=== PATIENT | male | born 1990 | race Caucasian/White ===

== ENCOUNTER 2019-03-26 13:06 | Inpatient (IN) | payer MEDICAID ==
[~2019-03-26] VITALS: Ht 162.6 cm; Wt 83.9 kg
[2019-03-26 13:42] VITALS: BP 139/78
--- NOTE | 2019-03-26 13:54 | NUR ---
TO BED 12 VIA W/C WITH CAREGIVER
--- NOTE | 2019-03-26 14:07 | NUR ---
28 Y/O M BIB CAREGIVER. PT HAS BEEN VOMITING WITH A COUGH X 3 DAYS. PT FEEDINGS THROUGH NG TUBE. CAREGIVER STATES PT VOMITS AFTER EATING. NO DIARRHEA. PT IN WHEELCHAIR AT BEDSIDE WITH CAREGIVER. PT VSS, OXGEN 98% ROOM AIR, LUNG SOUNDS CLEAR THROUGHOUT.
[2019-03-26 14:45] LABS: BASOPHILS % (AUTO) 0.4 % (0.0-2.0); EOSINOPHILS % (AUTO) 0.4 % (0.0-4.0); HEMATOCRIT 38.6 % (36-52); LYMPHOCYTES # (AUTO) 1.4 K/uL (2.0-11.5); LYMPHOCYTES % (AUTO) 13.1 % (20.5-51.1); MEAN CORPUSCULAR HEMOGLOBIN 34 pg (27-31); MEAN CORPUSCULAR HGB CONC 34 g/dL (33-37); MEAN CORPUSCULAR VOLUME 101.8 fL (80-94); MONOCYTES % (AUTO) 8.8 % (1.7-9.3); NEUTROPHILS # (AUTO) 8.4 K/uL (1.8-7.7); NEUTROPHILS % (AUTO) 77.3 % (42.2-75.2); PLATELET COUNT (AUTO) 410 K/uL (140-450); RED BLOOD CELL COUNT(AUTO) 3.79 MIL/uL (4.20-6.10); RED CELL DISTRIBUTION WIDTH 13.9 % (11.6-13.7); WHITE BLOOD COUNT (AUTO) 10.9 K/uL (4.8-10.8)
[2019-03-26 15:09] LABS: ANION GAP 15.9 (8-16); CARBON DIOXIDE 28.6 mmol/L (21-32); CREATININE 0.5 mg/dL (0.7-1.3); POTASSIUM 3.5 mmol/L (3.5-5.1)
[2019-03-26 15:18] LABS: ALBUMIN 3.2 g/dL (3.4-5.0); TOTAL BILIRUBIN 0.4 mg/dL (0.0-1.0)
--- NOTE | 2019-03-26 15:52 | NUR ---
Patient taken to XRAY via personal wheelchair by tech.
--- NOTE | 2019-03-26 16:04 | NUR ---
PT RETURNED FROM CT.
--- NOTE | 2019-03-26 16:37 | NUR ---
Patient returned from CT scan.
--- NOTE | 2019-03-26 17:12 | NUR ---
ASKED SERVANDO VELASCO TO RECHECK PT'S BODY WEIGHT BEFORE ADMISSION.
[2019-03-26] MEDS ORDERED: ACETAMINOPHEN 325 MG TAB PO PRN (17:25)
[2019-03-26] MEDS ORDERED: DOCUSATE SODIUM 100 MG GELCAP PO PRN (17:25)
[2019-03-26] MEDS ORDERED: ALBUTEROL SULFATE/IPRATROPIU 3 ML SOL IH PRN (17:35)
[2019-03-26] MEDS ORDERED: LORazepam 2 MG/ML VIAL IVP PRN (17:35)
--- NOTE | 2019-03-26 18:00 | NUR ---
PT REPOSITIONED FOR COMFORT. PT VOMITING, CLEANED PATIENT. VSS. ELECTRONIC DATA INTERCHANGE SPECIALIST AT BEDSIDE.
[2019-03-26] MEDS ORDERED: DIAZ20GE RC (18:20)
[2019-03-26] MEDS ORDERED: [UNRECOGNIZED DRUG - CODE] GT (18:20)
[2019-03-26] MEDS ORDERED: LACO10SO GT ×2 (18:20→18:36)
[2019-03-26] MEDS ORDERED: RISP1TAB27 GT (18:20)
[2019-03-26] MEDS ORDERED: METO5SOL19 GT (18:20)
[2019-03-26] MEDS ORDERED: LACT10SO93 GT (18:20)
[2019-03-26] MEDS ORDERED: PHEN20EL30 GT ×2 (18:20)
[2019-03-26] MEDS ORDERED: KEP500L GT (18:20)
[2019-03-26] MEDS ORDERED: BENZ-203 GT (18:20)
[2019-03-26] MEDS ORDERED: FERR75LI22 GT (18:20)
[2019-03-26] MEDS ORDERED: RISP0.2515 GT (18:20)
--- NOTE | 2019-03-26 18:30 | NUR ---
RECEIVED BEDSIDE REPORT FROM ED NURSE. CAREGIVER AT BEDSIDE. PT RESTING IN BED UPON ARRIVAL. FLACC 0. RESPIRATIONS EVEN AND UNLABORED WITH NO SOB OR RESPIRATORY DISTRESS. SKIN WARM AND DRY TO TOUCH. IV SITE IN LEFT THUMB 24G IS CLEAN, DRY, AND INTACT. VITAL SIGNS ARE FOLLOWS: 100/62 BP, 90% SPO2 ON RA, 81HR, 17RR, AND 97.7 TEMP. SAFETY MEASURES IN PLACE. WILL ENDORSE TO NIGHTSHIFT NURSE
--- NOTE | 2019-03-26 18:30 | NUR ---
Patient will be admitted to care of DR URBINA. Admited to [facility]. Will go to [id number]. Belongings list completed. Report to ROD KEENAN.
--- NOTE | 2019-03-26 19:00 | NUR ---
RECEIVED BEDSIDE REPORT FROM DAY SHIFT NURSE. PT RESTING IN BED. FLACC 0. RESPIRATIONS EVEN AND UNLABORED WITH NO SOB OR RESPIRATORY DISTRESS. SKIN WARM AND DRY TO TOUCH. IV SITE IN LEFT THUMB 24G IS CLEAN, DRY, AND INTACT. VITAL. GTUBE NOTED. SAFETY MEASURES IN PLACE. BED IN LOW POSITION, CALL LIGHT WITHIN REACH.
[2019-03-26 19:13] LABS: MAGNESIUM 2.3 mg/dL (1.8-2.4); PHOSPHORUS 3.4 mg/dL (2.5-4.9); THYROID STIMULATING HORMONE 1.86 uIU/mL (0.34-3.74)
[2019-03-26 20:00] VITALS: BP_SYST 100; BP_SYST 110; BP_DIAS 60; BP_DIAS 68
[2019-03-26] MEDS ORDERED: hePARIN / DEXT 5% PREMIX 250 ML IV SCH (20:05)
[2019-03-26] MEDS ORDERED: NITROGLYCERIN 0.4 MG TAB SL PRN (20:05)
[2019-03-26] MEDS: FERROUS SULFATE 300 MG/5 ML UDC GT SCH ×2 (21:00→22:05)
[2019-03-26] MEDS: ATORVASTATIN 20 MG TAB PO SCH ×2 (21:00→22:05)
[2019-03-26] MEDS: risperiDONE 1 MG TAB GT SCH ×2 (21:00→22:06)
[2019-03-26] MEDS: BENZTROPINE 1 MG TAB GT SCH ×2 (21:00→22:06)
[2019-03-26] MEDS ORDERED: PANTOPRAZOLE 40 MG INJ VIAL IVP SCH (21:00)
[2019-03-26] MEDS: CHLORHEXADINE GLUC 2% CLOTH TP SCH (21:00)
[2019-03-26] MEDS ORDERED: NON-FORMULARY ITEM (Lacosamide (Vimpat) 200 MG) GT SCH (21:00)
[2019-03-26] MEDS: METOPROLOL 25 MG TAB PO SCH ×2 (21:00→22:18)
[2019-03-26] MEDS ORDERED: levETIRAcetam 100 MG/ML ORASYR GT SCH (21:00)
[2019-03-26] MEDS: Lacosamide 100 mg tablet GT SCH (21:00)
--- NOTE | 2019-03-26 21:20 | NUR ---
ENDORSED PT TO JASMYNE FOR CONTINUOUS CARE.
--- NOTE | 2019-03-26 21:21 | NUR ---
RECEIVED FROM ANOTHER RN FOR CONTINUITY OF CARE. PT. HX. CEREBRAL PALSY. NEEDS WILL BE ANTICIPATED AND WILL BE MET. TOTAL CARE. DX. COFFEE GROUND EMESIS AND ABDOMINAL PAIN. GT IN PLACE. NO NOTED VOMITING AT THIS TIME. PT. PRESENTLY SLEEPING POST BENCH MOLDER APPRENTICE CLEANING HIM UP FOR NIGHT PERSONAL HYGIENE. TELEMETRY MONITORING 84 NSR AT THIS TIME. AFEBRILE. SKIN INTACT.
[2019-03-26] MEDS: ALBUTEROL SULFATE/IPRATROPIU 3 ML SOL IH SCH (21:53)
[2019-03-26] MEDS ORDERED: ASPIRIN 325 MG TAB PO SCH (22:00)
[2019-03-26] MEDS: DEXT 5% /NACL 0.9% 1,000 ML IV SCH (22:13)
[2019-03-26] MEDS ORDERED: CRUSHER, PILL MC ONE (22:20)
--- NOTE | 2019-03-26 22:38 | NUR ---
PT. VOMITING AT THIS TIME AND RESIDENT MD IN HERE TO OBSERVE PT. ALL GT MEDICATIONS NOT TO BE GIVEN. WILL HOLD ALL MEDICATIONS FOR GT . ONLY IVP IS TO BE ADMINISTERED ORDERED BY RESIDENT MD MARTIN. PT. PLACED WITH HOB UP FOR ASPIRATION PRECAUTION. ATTENDED TO BY CNAS AND NURSES.
[2019-03-26] MEDS ORDERED: levETIRAcetam 500 MG in NACL 0.9% 100 ML IV SCH (22:40)
[2019-03-26] MEDS: METOCLOPRAMIDE 10 MG/2 ML INJ VIAL IVP SCH (23:11)
[2019-03-26] MEDS: ONDANSETRON 4 MG/2 ML VIAL IM/IVP PRN (23:12)
[2019-03-26] MEDS ORDERED: PHENobarbital 65 MG/ML VIAL IV SCH (23:30)
[2019-03-26] MEDS ORDERED: BISACODYL 10 MG SUPP RC SCH (23:30)
--- NOTE | 2019-03-27 | NUR ---
ALL MEDICATIONS CHANGED TO IVP NOW BY RESIDENT MD. WILL MONITOR FOR FURTHER VOMITING. SPECIMEN FOR FLU AND MRSA NARES SENT TO LAB FOR TESTING. PLACED ON AT 2 LPM/NC RT ANXIOUS FROM VOMITING TOO MUCH AND 02 SAT ONLY 92 % ROOM AIR. NEEDS WILL BE ANTICIPATED AND WILL BE MET.
[2019-03-27 00:46] VITALS: BP 118/82
[2019-03-27 01:23] LABS: BASOPHILS # (AUTO) 0.1 K/uL (0.00-0.22); BASOPHILS % (AUTO) 0.5 % (0.0-2.0); EOSINOPHILS % (AUTO) 0.1 % (0.0-4.0); HEMATOCRIT 37.4 % (36-52); HEMOGLOBIN 12.5 g/dL (12.0-18.0); LYMPHOCYTES # (AUTO) 1.1 K/uL (2.0-11.5); LYMPHOCYTES % (AUTO) 9.2 % (20.5-51.1); MEAN CORPUSCULAR HEMOGLOBIN 34 pg (27-31); MEAN CORPUSCULAR HGB CONC 33 g/dL (33-37); MEAN CORPUSCULAR VOLUME 101.6 fL (80-94); MONOCYTES % (AUTO) 8.4 % (1.7-9.3); NEUTROPHILS # (AUTO) 9.8 K/uL (1.8-7.7); NEUTROPHILS % (AUTO) 81.8 % (42.2-75.2); PLATELET COUNT (AUTO) 399 K/uL (140-450); RED BLOOD CELL COUNT(AUTO) 3.69 MIL/uL (4.20-6.10); RED CELL DISTRIBUTION WIDTH 14.1 % (11.6-13.7); WHITE BLOOD COUNT (AUTO) 11.9 K/uL (4.8-10.8)
[2019-03-27] MEDS: DEXT 5% /NACL 0.9% 1,000 ML IV SCH ×3 (01:44→17:36)
--- NOTE | 2019-03-27 03:37 | NUR ---
PT. SLEEPING AT THIS TIME. NO RESTLESSNESS. SUCTIONED PRN IF VOMITING. HOB UP FOR ASPIRATION PRECAUTIONS AND WITH PADDED SIDERAILS FOR SEIZURE PRECAUTIONS.
--- NOTE | 2019-03-27 03:44 | NUR ---
LATEST TROPONIN TRENDING DOWN TO NORMAL. RESIDENT MD MARTIN AWARE. ORDER TO HOLD ASPIRIN TABLET.
[2019-03-27 04:00] VITALS: BP 105/70
--- NOTE | 2019-03-27 04:00 | NUR ---
PT. ATTENDED TO BY CNAS. PILLOW SUPPORT TO PRESSURE AREAS. TURNED Q 2H. NO VOMITING POST ANTI NAUSEA /VOMITING MEDICATIONS ADMINISTERED.
[2019-03-27] MEDS: METOCLOPRAMIDE 10 MG/2 ML INJ VIAL IVP SCH ×3 (05:01→17:35)
--- NOTE | 2019-03-27 06:22 | NUR ---
AM PERSONAL HYGIENE RENDERED BY CNAS. PT. STOPPED VOMITING. NEEDS ANTICIPATED AND MET. TOTAL CARE. IVF SITE INTACT AND NO INFILTRATION. TELEMETRY MONITORING.
[2019-03-27] MEDS ORDERED: LANSOPRAZOLE 30 MG CAPDR GT SCH (06:30)
--- NOTE | 2019-03-27 07:25 | NUR ---
RECEIVED BEDSIDE SHIFT REPORT FROM INSET CUTTER NURSE FOR CONTINUATION OF CARE. PATIENT IS NPO DUE TO PERSISTENT VOMITING. D5NS RUNNING AT 120 ML/HR. 24 G IV IN LEFT HAND. 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 HX OF SHOE SALESMAN SHUNT. PATIENT IS UNRESPONSIVE TO VERBAL COMMANDS. BILATERAL WRIST CONTRACTURES. 2 L O2 NC FOR COMFORT AND LOW SPO2 SATURATION THROUGHOUT THE NIGHT AT 90-92%. CALL LIGHT ON AND WITHIN REACH. BED IN LOW POSITION, SEIZURE PRECAUTION IN PLACE. WILL CONTINUE TO MONITOR.
[2019-03-27 08:00] VITALS: BP 92/67
[2019-03-27] MEDS: ALBUTEROL SULFATE/IPRATROPIU 3 ML SOL IH SCH ×3 (08:05→20:29)
--- NOTE | 2019-03-27 08:34 | NUR ---
PATIENT HAS BEEN SCREENED AND CATEGORIZED HIGH NUTRITION RISK. PATIENT WILL BE SEEN WITHIN 1-2 DAYS OF ADMISSION. 03/26/2019-03/28/[address]
[2019-03-27 08:51] LABS: ANION GAP 12.1 (8-16); CARBON DIOXIDE 32.8 mmol/L (21-32); CREATININE 0.5 mg/dL (0.7-1.3)
[2019-03-27] MEDS ORDERED: LISINOPRIL 5 MG TAB PO SCH (09:00)
[2019-03-27] MEDS ORDERED: levETIRAcetam 1,500 MG in NACL 0.9% 100 ML IV SCH ×3 (09:00)
[2019-03-27] MEDS ORDERED: PHENobarbital 130 MG/ML VIAL IM SCH (09:00)
[2019-03-27] MEDS ORDERED: METOCLOPRAMIDE 10 MG/10 ML SYRP UDC GT SCH (09:00)
[2019-03-27] MEDS ORDERED: PHENobarbital 130 MG/ML VIAL IV SCH ×2 (09:00→21:00)
[2019-03-27] MEDS ORDERED: ASPIRIN 81 MG TAB.CHEW PO SCH (09:00)
[2019-03-27 09:14] LABS: POTASSIUM 2.9 mmol/L (3.5-5.1)
[2019-03-27 09:30] LABS: MAGNESIUM 2.2 mg/dL (1.8-2.4); PHOSPHORUS 4.1 mg/dL (2.5-4.9)
[2019-03-27] MEDS ORDERED: POTASSIUM CHLORIDE 20% 40 MEQ/15 ML UDC GT SCH (09:30)
--- NOTE | 2019-03-27 09:30 | NUR ---
RECEIVED CRITICAL LAB VALUE OF 2.9 POTASSIUM, REPORTED TO . [place] NUNEZ AND POTASSIUM SUPPLEMENT PER MD'S ORDER. PATIENT WAS ASSESSED BY DR. BLACKBURN FOR GASTRIC ABNORMALITIES, ORDERS ENTERED PER MD FOR LAXATIVES. NUTRITION CONSULT PLACED FOR FEEDING. PATIENT IS IN BED, POOR EYE CONTACT, UNRESPONSIVE TO VERBAL COMMANDS, AAOX1, SEVERE INTELLECTUAL DISABILITY. WILL CONTINUE TO MONITOR.
[2019-03-27 09:31] LABS: CHOL/HDL RATIO 4.5 (1-4.5)
[2019-03-27] MEDS ORDERED: MAGNESIUM HYDROXIDE 2400 MG/30 ML UDC GT PRN (09:55)
[2019-03-27] MEDS ORDERED: MAGNESIUM CITRATE 300 ML BTL GT SCH (09:55)
[2019-03-27] MEDS ORDERED: POTASSIUM CHLORIDE 40 MEQ, LIDOCAINE MPF 1% 25 MG in NACL 0.9% 250 ML IV ONE (10:00)
[2019-03-27] MEDS: BENZTROPINE 1 MG TAB GT SCH ×2 (10:29→21:01)
[2019-03-27] MEDS: risperiDONE 1 MG TAB GT SCH ×3 (10:29→21:03)
[2019-03-27] MEDS: FERROUS SULFATE 300 MG/5 ML UDC GT SCH ×2 (10:29→21:02)
[2019-03-27] MEDS: LACTULOSE 20 GM/30 ML UDC GT SCH (10:30)
[2019-03-27] MEDS: Lacosamide 100 mg tablet GT SCH ×2 (10:30→21:02)
[2019-03-27] MEDS: CHLORHEXADINE GLUC 2% CLOTH TP SCH ×2 (11:57→21:03)
[2019-03-27 12:00] VITALS: BP 119/63
--- NOTE | 2019-03-27 12:00 | NUR ---
PATIENT WAS CLEANED DUE TO SOILED LINEN, PATIENT HAD A LARGE AMOUNT OF DARK GREEN, MUCOID POOP THAT WAS VERY STEADFAST TO THE PATIENTS SKIN AND LINEN. PATIENT IS OBSERVED TO BE AGITATED AND WAS SEEN HITTING HIMSELF WITH A CLOSED RIGHT FIST, SOFT MITTENS ADMINISTERED. K RIDER ADMINISTERED, MEDICATIONS ADMINISTERED PER PEG TUBE. RECEIVED A PHONE CALL FROM MOTHER REGARDING A STATUS UPDATE. PATIENT IS RESTING IN BED, 1 EPISODE OF COFFEE GROUND EMESIS NOTED. BED IN LOW POSITION, CALL LIGHT ON AND WITHIN REACH. WILL CONTINUE TO MONITOR.
[2019-03-27] MEDS: levETIRAcetam 1,500 MG in NACL 0.9% 100 ML IV SCH (14:21)
--- NOTE | 2019-03-27 14:21 | NUR ---
PATIENTS VITAL SIGNS ARE WNL, PATIENT HAS NOT HAD A BOWEL MOVEMENT SINCE ADMINISTRATION OF MAG CITRATE. PATIENT HAS 1 BAG OF K RIDER RUNNING AT 68 ML/HR. TOLERATING WELL, NO SIGNS OF DISTRESS NOTED. BED IS IN LOW POSITION, CALL LIGHT ON AND WITHIN REACH. WILL CONTINUE TO MONITOR.
[2019-03-27 16:00] VITALS: BP 124/68
--- NOTE | 2019-03-27 16:57 | NUR ---
03/27/2019 RD INITIAL ASSESSMENT COMPLETED PLEASE REFER TO NUTRITION ASSESSMENT UNDER CARE ACTIVITY FOR ESTIMATED NUTRITIONAL NEEDS. 1. CONTINUE NPO NECESSARY 2. RECOMMEND JEVITY 1.2 @ 60 ML/HR -THIS WILL PROVIDE A VOLUME OF 1440 ML, 1728 KCAL, 79 GM PROTEIN. IT WILL MEET 100% OF PT ESTIMATED ENERGY AND PROTEIN NEEDS. 3. RECOMMEND FREE WATER FLUSH OF [address] TO FOLLOW-UP 2-3 DAYS, HIGH RISK [facility]
--- NOTE | 2019-03-27 17:00 | NUR ---
TUBE FEEDING NOT STARTED DUE TO COFFEE GROUND EMESIS X3, NO URINE OUTPUT. PER MD ORDERS, ADMINISTERED PROTONIX, REGLAN, AND ZOFRAN IV. NO EMESIS AT THIS TIME, D5 NS RUNNING AT 120 ML/HR. SPOKE WITH MOTHER REGARDING TREATMENT. SHE STATES SHE WILL BE HERE TOMORROW. PATIENT IS SLEEPING AT THIS TIME, CHEST RISE AND FALL OBSERVED, CALL LIGHT ON AND WITHIN REACH, WILL CONTINUE TO MONITOR.
[2019-03-27] MEDS ORDERED: SODIUM PHOSPHATE 118 ML ENEM RC SCH (17:10)
[2019-03-27] MEDS: PANTOPRAZOLE 40 MG INJ VIAL IVP SCH ×2 (17:35→21:01)
[2019-03-27] MEDS: ONDANSETRON 4 MG/2 ML VIAL IM/IVP PRN (17:36)
--- NOTE | 2019-03-27 19:10 | NUR ---
REPORT GIVEN TO NIGHTSHIFT NURSE FOR CONTINUATION OF CARE.
--- NOTE | 2019-03-27 19:15 | NUR ---
RECEIVED PT FROM ALISSA RN PT WITH HX OF SEVERE INTELECTUAL DISABILITY CONTRACTED, IV ON LEFT HAND GAUGE # 24 INFUSING WELL, G TUBE FEEDING ZERO RESIDUAL PT REPOSITIONED INCONTINENT INITIAL ASSESSMENT DONE
[2019-03-27 19:36] LABS: ANION GAP 12.5 (8-16); CARBON DIOXIDE 28.4 mmol/L (21-32); CREATININE 0.5 mg/dL (0.7-1.3); POTASSIUM 3.9 mmol/L (3.5-5.1)
[2019-03-27 20:00] VITALS: BP 92/49
--- NOTE | 2019-03-27 20:36 | NUR ---
RECEIVED PT ON 2L NC WITH SP02 OF 95% AND CLEAR BREATH SOUNDS ON UPPER LOBES. NO RESPIRATORY DISTRESS NOTED AT THIS TIME; HR 82, RR 18. HHN TX GIVEN ORDERED WITH NO ADVERSE REACTION. WILL CONTINUE TO MONITOR PT
--- NOTE | 2019-03-27 22:30 | NUR ---
PT HAVE A MODERATED COFFEE BROWN VOMITING NOT FEVER, SPONGE BATH GIVEN LINEN CHANGED PT ON TELEMETRY SR
[2019-03-28] VITALS: BP 100/50
[2019-03-28] MEDS: METOCLOPRAMIDE 10 MG/2 ML INJ VIAL IVP SCH ×4 (00:29→17:00)
[2019-03-28] MEDS: levETIRAcetam 1,500 MG in NACL 0.9% 100 ML IV SCH ×2 (00:58→12:41)
--- NOTE | 2019-03-28 01:00 | NUR ---
PT SLEEPING NOT VOMITING ACTIVE AT THIS TIME ON TELMETRY SR IV ON LEFT HAND INFUSING WELL
[2019-03-28] MEDS: DEXT 5% /NACL 0.9% 1,000 ML IV SCH ×2 (01:35→12:41)
[2019-03-28 04:00] VITALS: BP 108/73
--- NOTE | 2019-03-28 04:00 | NUR ---
SPONGE BATH GIVEN EDUAR MENDEZ ON TELE SR
--- NOTE | 2019-03-28 07:00 | NUR ---
REPORT GIVEN TO DAY SHIFT NURSE FOR CONTINUE OF CARE
--- NOTE | 2019-03-28 07:20 | NUR ---
BEDSIDE SHIFT REPORT RECEIVED FROM PIANO MOVER NURSE FOR CONTINUATION OF CARE. PATIENT IS RESTING IN BED, EYES ARE CLOSED, OBSERVED CHEST RISE AND FALL. PATIENT HAS A RIGHT HAND MITTEN SOFT RESTRAINT DUE TO HX OF HITTING HIMSELF. PATIENTS IV IS INTACT AND FLUSHING 120 ML/HR D5NS. BED IS IN LOW POSITION, CALL LIGHT ON AND WITHIN REACH. WILL CONTINUE TO MONITOR.
[2019-03-28 07:21] LABS: BASOPHILS % (AUTO) 0.3 % (0.0-2.0); EOSINOPHILS % (AUTO) 0.1 % (0.0-4.0); HEMATOCRIT 30.6 % (36-52); HEMOGLOBIN 10.3 g/dL (12.0-18.0); LYMPHOCYTES # (AUTO) 1.4 K/uL (2.0-11.5); MEAN CORPUSCULAR HEMOGLOBIN 35 pg (27-31); MEAN CORPUSCULAR HGB CONC 34 g/dL (33-37); MEAN CORPUSCULAR VOLUME 104.6 fL (80-94); MONOCYTES # (AUTO) 1.3 K/uL (0.8-1.0); MONOCYTES % (AUTO) 13.1 % (1.7-9.3); NEUTROPHILS # (AUTO) 7.3 K/uL (1.8-7.7); NEUTROPHILS % (AUTO) 72.5 % (42.2-75.2); PLATELET COUNT (AUTO) 383 K/uL (140-450); RED BLOOD CELL COUNT(AUTO) 2.92 MIL/uL (4.20-6.10); RED CELL DISTRIBUTION WIDTH 14.5 % (11.6-13.7)
[2019-03-28 07:33] LABS: MAGNESIUM 2.8 mg/dL (1.8-2.4); PHOSPHORUS 2.6 mg/dL (2.5-4.9)
[2019-03-28 07:36] LABS: ANION GAP 10.4 (8-16); CARBON DIOXIDE 28.9 mmol/L (21-32); CREATININE 0.5 mg/dL (0.7-1.3); POTASSIUM 3.3 mmol/L (3.5-5.1)
--- NOTE | 2019-03-28 07:51 | NUR ---
130 CC FREE WATER FLUSH TOLERATED WITHOUT DISTRESS THROUGH PEG TUBE PER MD'S ORDERS.
[2019-03-28 08:00] VITALS: BP 99/58
[2019-03-28] MEDS: LACTULOSE 20 GM/30 ML UDC GT SCH (08:03)
[2019-03-28] MEDS: FERROUS SULFATE 300 MG/5 ML UDC GT SCH ×2 (08:03→21:50)
[2019-03-28] MEDS: BENZTROPINE 1 MG TAB GT SCH ×2 (08:04→21:49)
[2019-03-28] MEDS: risperiDONE 1 MG TAB GT SCH ×3 (08:04→21:53)
[2019-03-28] MEDS: Lacosamide 100 mg tablet GT SCH ×2 (08:04→21:50)
[2019-03-28] MEDS: PANTOPRAZOLE 40 MG INJ VIAL IVP SCH ×2 (08:04→21:52)
[2019-03-28] MEDS: CHLORHEXADINE GLUC 2% CLOTH TP SCH ×2 (08:05→21:52)
--- NOTE | 2019-03-28 08:40 | NUR ---
ROOM AIR SATURATION 88% POST HHN THERAPY PLACED PATIENT ON SUPPLEMENTAL OXYGEN AT 2LPM VIA NC
--- NOTE | 2019-03-28 10:10 | NUR ---
PATIENT IS RESTING IN BED, NO SIGNS OF DISTRESS NOTED AT THIS TIME, MEDICATIONS ADMINISTERED, TOLERATED WITH MILD DISCOMFORT EVIDENCED BY FACIAL GRIMACE AND MILD SQUIRMING. SKIN REMAINS INTACT, IV FLUID RUNNING AT 120 ML/HR. NPO PER MD FOR COFFEE GROUND EMESIS. BED IN LOW POSITION, CALL LIGHT ON AND WITHIN REACH. WILL CONTINUE TO MONITOR.
--- NOTE | 2019-03-28 11:45 | NUR ---
FREE WATER FLUSH 130 MLS TOLERATED WELL, PATIENT IS RESTING IN BED, NO SIGNS OF DISTRESS NOTED.
[2019-03-28 12:00] VITALS: BP 88/47
[2019-03-28] MEDS: ALBUTEROL SULFATE/IPRATROPIU 3 ML SOL IH SCH ×3 (13:38→21:12)
--- NOTE | 2019-03-28 13:45 | NUR ---
PATIENT IS RESTING IN BED, NO SIGNS OF EMESIS, BED IN LOW POSITION, FLACC-0. PATIENTS MOTHER AND REIMBURSEMENT COORDINATOR AT BEDSIDE, DR. HOYT DISCUSSED PLAN OF CARE WITH THEM, ORDERED TO BE PLACED BACK ON FEEDING AND TO COLLECT OCCULT STOOL, PATIENT HAS YET TO HAVE A BM TODAY. ORDER FOR HYPOTONIC IVF. BED IN LOW POSITION, CALL LIGHT ON AND WITHIN REACH. WILL CONTINUE TO MONITOR.
[2019-03-28 16:00] VITALS: BP 94/50
[2019-03-28] MEDS ORDERED: NACL 0.45% 1,000 ML IV SCH (16:00)
--- NOTE | 2019-03-28 16:15 | NUR ---
130 ML FREE WATER FLUSH TOLERATED WELL. PATIENT IS RESTING, EYES CLOSED, BED IN LOW POSITION, CALL LIGHT ON AND WITHIN REACH. WILL CONTINUE TO MONITOR.
[2019-03-28] MEDS ORDERED: POTASSIUM CHLORIDE 40 MEQ, LIDOCAINE MPF 1% 25 MG in NACL 0.9% 250 ML IV ONE (17:00)
--- NOTE | 2019-03-28 19:25 | NUR ---
REPORT GIVEN TO SOLVENT PROCESS EXTRACTOR OPERATOR NURSE FOR CONTINUATION OF CARE.
--- NOTE | 2019-03-28 19:27 | NUR ---
RECEIVED PT FROM DAYSHIFT NURSE PT WITH HX OF SEVERE INTELLECTUAL DISABILITY ON TELE SR, IV ON LEFT HAND INFUSING WELL G TUBE FGEEDING WELLTOLERATED INITIAL ASSESSMENT DONE
[2019-03-28 20:00] VITALS: BP 120/65
--- NOTE | 2019-03-28 22:00 | NUR ---
NOT VOMITING, NOT DIARRHEA REMAINSTBLE NOT FEVER REPOSITIONED ON TELE SR
[2019-03-29] VITALS: BP 108/55
--- NOTE | 2019-03-29 01:00 | NUR ---
PT ON CLOSE MONITORINF G TUBE FEEDING WELL TOLERATED, NOT DISTRESS NOTED NOT VOMITING
[2019-03-29] MEDS: levETIRAcetam 1,500 MG in NACL 0.9% 100 ML IV SCH (01:28)
[2019-03-29 04:00] VITALS: BP 110/50
--- NOTE | 2019-03-29 04:00 | NUR ---
SPONGE BATH FGIVEN LINEN CHANGED PT REMAIN STABLE NOT DISTESS NOTED
[2019-03-29] MEDS: METOCLOPRAMIDE 10 MG/2 ML INJ VIAL IVP SCH ×2 (06:48)
--- NOTE | 2019-03-29 07:00 | NUR ---
PT WILL BE ENDORSED TO DAY SHIFT NURSE FOR CONTINUE OF CARE
--- NOTE | 2019-03-29 07:10 | NUR ---
RECEIVED REPORT FROM NIGHT NURSE. PT IN BED AWAKE, NO DISTRESS NOTED, FLACC 0. G TUBE IN PLACE RECEIVING JEVITY 1.2 AT 60MLS. RESPIRATIONS EVEN AND UNLABORED ON 2L O2 VIA NC. SKIN INTACT. IV IN PLACE L H 24G PATENT ASYMPTOMATIC AND INTACT INFUSING PER ORDER. INCONTINENT. BED IN LOW POSITION, SAFETY MEASURES IN PLACE. CALL LIGHT WITHIN REACH, WILL CONTINUE TO MONITOR.
[2019-03-29 08:00] VITALS: BP 92/51
[2019-03-29 08:08] LABS: BASOPHILS # (AUTO) 0.1 K/uL (0.00-0.22); BASOPHILS % (AUTO) 0.5 % (0.0-2.0); EOSINOPHILS # (AUTO) 0.1 K/uL (0-0.4); EOSINOPHILS % (AUTO) 0.8 % (0.0-4.0); HEMATOCRIT 32.2 % (36-52); HEMOGLOBIN 10.9 g/dL (12.0-18.0); LYMPHOCYTES # (AUTO) 1.9 K/uL (2.0-11.5); LYMPHOCYTES % (AUTO) 19.9 % (20.5-51.1); MEAN CORPUSCULAR HEMOGLOBIN 36 pg (27-31); MEAN CORPUSCULAR HGB CONC 34 g/dL (33-37); MEAN CORPUSCULAR VOLUME 105.3 fL (80-94); MONOCYTES # (AUTO) 0.8 K/uL (0.8-1.0); MONOCYTES % (AUTO) 8.6 % (1.7-9.3); NEUTROPHILS # (AUTO) 6.5 K/uL (1.8-7.7); NEUTROPHILS % (AUTO) 70.2 % (42.2-75.2); PLATELET COUNT (AUTO) 453 K/uL (140-450); RED BLOOD CELL COUNT(AUTO) 3.06 MIL/uL (4.20-6.10); RED CELL DISTRIBUTION WIDTH 14.2 % (11.6-13.7); WHITE BLOOD COUNT (AUTO) 9.3 K/uL (4.8-10.8)
[2019-03-29 08:10] LABS: ANION GAP 13.6 (8-16); CARBON DIOXIDE 24.5 mmol/L (21-32); CREATININE 0.5 mg/dL (0.7-1.3); POTASSIUM 4.1 mmol/L (3.5-5.1)
[2019-03-29 08:17] LABS: MAGNESIUM 2.4 mg/dL (1.8-2.4); PHOSPHORUS 2.3 mg/dL (2.5-4.9)
[2019-03-29] MEDS: ALBUTEROL SULFATE/IPRATROPIU 3 ML SOL IH SCH ×2 (08:22→14:32)
[2019-03-29] MEDS: LACTULOSE 20 GM/30 ML UDC GT SCH (08:45)
[2019-03-29] MEDS: FERROUS SULFATE 300 MG/5 ML UDC GT SCH (08:45)
[2019-03-29] MEDS: PANTOPRAZOLE 40 MG INJ VIAL IVP SCH (08:46)
[2019-03-29] MEDS: Lacosamide 100 mg tablet GT SCH (08:46)
[2019-03-29] MEDS: BENZTROPINE 1 MG TAB GT SCH (08:46)
[2019-03-29] MEDS: CHLORHEXADINE GLUC 2% CLOTH TP SCH (08:47)
[2019-03-29] MEDS: risperiDONE 1 MG TAB GT SCH (08:50)
--- NOTE | 2019-03-29 09:09 | NUR ---
MEDICATIONS ADMINISTERED PER ORDER. PT TOLERATED WELL. NO DISTRESS NOTED. SAFETY MEASURES IN PLACE. CALL LIGHT WITHIN REACH, WILL CONTINUE TO MONITOR.
--- NOTE | 2019-03-29 11:52 | NUR ---
DISCHARGE PLANNING ASSESSMENT [facility] Patient: Jovany Chapa : 1990 Age/Sex: 28/M Unit#: [id number] Room/Bed: 121/B User: Caridad Burger CM Date: 03/29/19 11:44 Type: CM: Discharge Planning High Risk DC Screen Yes Name: Larissa Gongora Relationship: Mother Pre-Admission Living Arrangements: Board and Care Prior ADL Total/Dependent Healthcare Decision Maker: Next of Kin Advance Directive No Physician Orders for Life Sustaining Treatment Form No Patient/Family Have Educational Needs No Tentative Discharge Plan/Destination: Board and Care Transportation Needs: [facility] Tentative Discharge Plan Summary: 28 y/o male admitted from [facility] for abdominal pain and coffee ground emesis. Pt with hx of cerebral palsy, seizure disorder and PEG. Pt is non-verbal and bedbound. Pt has been a resident at [facility] for 22 years. Pt's decision maker is his mother, Larissa Vidal, . Pt receives supportive services from [facility], assigned gearcase assembler is Rere Hodges . DC plan is for patient to return to [facility] unless other needs are identified. Nursing to contact [facility]'s RN computer systems consultant, Camelia Powers, to give report prior to DC. Signature: LAZ Medellin/LUIS Date: Mar 29, 2019 Time: 11:50
[2019-03-29] MEDS ORDERED: levETIRAcetam 100 MG/ML ORASYR GT SCH (12:00)
[2019-03-29] MEDS ORDERED: METOCLOPRAMIDE 10 MG/10 ML SYRP UDC GT SCH (12:00)
[2019-03-29] MEDS ORDERED: SODIUM PHOS / POTASSIUM PHOS 1 PKT PDR GT SCH (12:00)
--- NOTE | 2019-03-29 12:21 | NUR ---
MEDICATIONS ADMINISTERED PER ORDER. PT TOLERATED WELL, NO DISTRESS NOTED. SAFETY MEASURES IN PLACE. CALL LIGHT WITHIN REACH. WILL CONTINUE TO MONITOR.
[2019-03-29 15:01] VITALS: BP 102/60
--- NOTE | 2019-03-29 16:45 | NUR ---
PT DISCHARGED AT THIS TIME. PT UNABLE TO SIGN DISCHARGE PAPERWORK. DISCHARGE PAPERWORK GIVEN TO [facility] STAFF. PT IN STABLE CONDITION, RESPIRATIONS EVEN AND UNLABORED ON ROOM AIR, IV REMOVED WITH MINIMAL BLOOD LOSS AND LUMEN INTACT. ID BANDS REMOVED. BELONGINGS VERIFIED AND RETURNED TO PT. FLU VACCINE UP TO DATE, PNA VACCINE NOT GIVEN DUE TO UNKNOWN STATUS. PT DISCHARGED TO [facility] IN [place] VIA [facility] OWN TRANSPORT. PT AND STAFF MEMBERS ESCORTED OFF UNIT ON FOOT.
== END 2019-03-29 16:45 | disposition home or self-care (01) | DRG 241 ==
LOC: MED 13:06 → MTU 17:32
PROVIDERS: ADMIT General Practice; ATTEND General Practice
DX: K29.70 Gastritis, unspecified, without bleeding (principal); I21.A1 Myocardial infarction type 2; E87.0 Hyperosmolality and hypernatremia; E44.0 Moderate protein-calorie malnutrition; R13.10 Dysphagia, unspecified; M41.9 Scoliosis, unspecified; K20.9 Esophagitis, unspecified; E87.6 Hypokalemia; I10 Essential (primary) hypertension; G40.909 Epilepsy, unspecified, not intractable, without status epilepticus; D75.89 Other specified diseases of blood and blood-forming organs; K59.09 Other constipation; F72 Severe intellectual disabilities; G80.9 Cerebral palsy, unspecified; N20.0 Calculus of kidney; K44.9 Diaphragmatic hernia without obstruction or gangrene; Z68.31 Body mass index [BMI] 31.0-31.9, adult; Z88.1 Allergy status to other antibiotic agents; Z88.0 Allergy status to penicillin; Z88.8 Allergy status to other drugs, medicaments and biological substances; Z93.1 Gastrostomy status; Z87.820 Personal history of traumatic brain injury; Z79.899 Other long term (current) drug therapy; Q65.9 Congenital deformity of hip, unspecified
CPT/HCPCS: 36415; 71045; 74018; 80048; 80053; 80184; 82140; 82150; 82607; 83036; 83690; 83735; 83880; 84100; 84134; 84443; 84484; 85025; 85610; 85730; 87081; 87804; 93005; 94640; 99285; C9113; J1953; J2001; J2405; J2560; J2765; J3480; J7030; J7042; J7620; J8597; Q0092

== ENCOUNTER 2019-12-29 08:58 | Inpatient (IN) | payer MEDICAID, SELFPAY ==
[~2019-12-29] VITALS: Ht 160 cm; Wt 75.7 kg
[~2019-12-29 08:58] MED LIST: BENZ-203 GT; DIAZ20GE RC; FERR75LI22 GT; KEP500L GT; LACO10SO GT; LACT10SO93 GT; METO5SOL19 GT; PHEN20EL30 GT; RISP0.2515 GT; RISP1TAB27 GT; [UNRECOGNIZED DRUG - CODE] GT
[2019-12-29 09:03] VITALS: BP 116/76
--- NOTE | 2019-12-29 09:03 | NUR ---
W/C assisted to bed 10
--- NOTE | 2019-12-29 09:29 | NUR ---
PATIENT PRESENTS TO ED WITH VOMITING SINCE FRIDAY . CAREGIVER STATES THAT HE IS ON JEVITY 1.2 AND UNABLE TO KEEP FEEDING DOWN. PT TOLERATES PEDILYTE WELL. PT DOES HAVE A GT. ABD SEEMS DISTEDNED AND FIRM. PT IS NON VERBAL BUT DOES REACT WHEN LOWER ABD IS PALPATED. SKIN IS PINK/WARM/DRY; AAOXO, NON VERBAL AND IS UNABLE TO AMBULATE.LUNGS CLEAR BL; HR EVEN AND REGULAR; PT DENIES ANY FEVER, CP, SOB, OR COUGH AT THIS TIME; PATIENT STATES PAIN OF 0/10 AT THIS TIME; VSS; PATIENT POSITIONED FOR COMFORT; HOB ELEVATED; BEDRAILS UP X2; BED DOWN. ER MD MADE AWARE OF PT STATUS. PT IS TESTED MONTHLY FOR COVID. LAST NEGATIVE TEST WAS DONE ON 12/16
[2019-12-29] MEDS ORDERED: IPRA3AMP2 IH (09:30)
[2019-12-29] MEDS ORDERED: FISH1SGL18 GT (09:30)
[2019-12-29] MEDS ORDERED: LACT10SO93 GT (09:30)
[2019-12-29] MEDS ORDERED: MULT9LIQ2 GT (09:30)
[2019-12-29] MEDS ORDERED: KEP500L GT (09:30)
[2019-12-29] MEDS ORDERED: DOCU100C16 GT (09:30)
[2019-12-29] MEDS ORDERED: PHEN20EL30 GT ×2 (09:38)
[2019-12-29] MEDS ORDERED: CALC-575 GT (09:38)
[2019-12-29] MEDS ORDERED: ONDA8TAB GT (09:38)
[2019-12-29] MEDS ORDERED: METO5SOL19 GT (09:38)
[2019-12-29] MEDS ORDERED: LANS15EC28 GT (09:38)
[2019-12-29] MEDS ORDERED: RISP0.5T3 GT ×2 (09:38)
[2019-12-29] MEDS ORDERED: NA P133E RC (09:44)
[2019-12-29] MEDS ORDERED: ZINC113C4 TP (09:44)
[2019-12-29] MEDS ORDERED: CHOL200035 GT (09:44)
[2019-12-29] MEDS ORDERED: DEXT15SY7 GT (09:44)
[2019-12-29] MEDS ORDERED: ACET-2619 GT (09:44)
[2019-12-29] MEDS ORDERED: IMO2 GT (09:44)
[2019-12-29] MEDS ORDERED: LORA10TA19 GT (09:44)
[2019-12-29] MEDS ORDERED: BISA-213 RC (09:44)
[2019-12-29] MEDS ORDERED: IBUP-1842 GT (09:44)
[2019-12-29] MEDS ORDERED: ASCO500T95 GT (09:44)
[2019-12-29 10:04] LABS: BASOPHILS # (AUTO) 0.1 K/uL (0.00-0.22); BASOPHILS % (AUTO) 0.6 % (0.0-2.0); EOSINOPHILS # (AUTO) 0.2 K/uL (0-0.4); EOSINOPHILS % (AUTO) 1.2 % (0.0-4.0); HEMATOCRIT 43.8 % (36-52); HEMOGLOBIN 15.2 g/dL (12.0-18.0); LYMPHOCYTES # (AUTO) 1.9 K/uL (2.0-11.5); LYMPHOCYTES % (AUTO) 14.8 % (20.5-51.1); MEAN CORPUSCULAR HEMOGLOBIN 32 pg (27-31); MEAN CORPUSCULAR HGB CONC 35 g/dL (33-37); MEAN CORPUSCULAR VOLUME 92.2 fL (80-94); MONOCYTES # (AUTO) 1.1 K/uL (0.8-1.0); MONOCYTES % (AUTO) 9.1 % (1.7-9.3); NEUTROPHILS # (AUTO) 9.3 K/uL (1.8-7.7); NEUTROPHILS % (AUTO) 74.3 % (42.2-75.2); PLATELET COUNT (AUTO) 407 K/uL (140-450); RED BLOOD CELL COUNT(AUTO) 4.75 MIL/uL (4.20-6.10); RED CELL DISTRIBUTION WIDTH 14.6 % (11.6-13.7); WHITE BLOOD COUNT (AUTO) 12.5 K/uL (4.8-10.8)
[2019-12-29 10:22] LABS: ALBUMIN 3.8 g/dL (3.4-5.0); ANION GAP 11.4 (8-16); CARBON DIOXIDE 33.4 mmol/L (21-32); CREATININE 0.6 mg/dL (0.6-1.3); TOTAL BILIRUBIN 0.4 mg/dL (0.0-1.0)
[2019-12-29 10:27] LABS: POTASSIUM 2.8 mmol/L (3.5-5.1)
[2019-12-29] MEDS ORDERED: KCL 20 MEQ/WATER INJ PREMIX 200 ML IV ONE (10:30)
[2019-12-29] MEDS ORDERED: NACL 0.9% 1,000 ML IV ONE (10:30)
--- NOTE | 2019-12-29 11:05 | NUR ---
TARIQ SWAB COMPLETED AND GIVEN TO DIALYSIS SOCIAL WORKER
[2019-12-29] MEDS ORDERED: metroNIDAZOLE 500 MG/NS PREMIX 100 ML IV ONE (11:55)
[2019-12-29] MEDS ORDERED: CEFEPIME 2,000 MG in DEXTROSE 5% 100 ML IV ONE (11:55)
[2019-12-29] MEDS: DEXTROSE 5% 1,000 ML IV SCH ×2 (12:40→22:29)
--- NOTE | 2019-12-29 13:21 | NUR ---
RECEIVED REPORT FROM ER NURSE. ADMITTED 29Y/O MALE FROM A BOARD AND CARE. CC: VOMITING. ADMITTING DX: PNEUMOPERITONEUM. PT IS AWAKE WITH EYES OPEN. AOX0, APHASIC WITH MENTAL DELAY. FLACC 0, RESPIRATIONS ARE EVEN AND UNLABORED, NO APPARENT DISTRESS. ON ROOM AIR, O2SAT 96%. SKIN IS INTACT. ABDOMEN IS ROUND AND DISTENDED. PT IS NPO. SAFETY PRECAUTIONS IN PLACE. CALL LIGHT WITHIN REACH. WILL CONTINUE TO MONITOR.
--- NOTE | 2019-12-29 13:24 | NUR ---
Patient will be admitted to care of DR MCKEON. Admited to [facility]. Will go to room 121B. Belongings list completed. Report to ROD EID.
--- NOTE | 2019-12-29 14:20 | NUR ---
PT OFF UNIT TO OR
[2019-12-29] MEDS ORDERED: guaiFENesin DM 200/20 MG-10 ML 10 ML UDC PO PRN (14:40)
[2019-12-29] MEDS ORDERED: DOCUSATE SODIUM 100 MG GELCAP PO PRN (14:40)
[2019-12-29] MEDS ORDERED: ACETAMINOPHEN 325 MG TAB PO PRN (14:40)
[2019-12-29] MEDS ORDERED: ZOLPIDEM 5 MG TAB PO PRN (14:40)
[2019-12-29] MEDS ORDERED: HYDROcodone/APAP 7.5/325 MG 1 TAB PO PRN (14:40)
[2019-12-29] MEDS ORDERED: POTASSIUM CHLORIDE 40 MEQ, LIDOCAINE MPF 1% 25 MG in NACL 0.9% 250 ML IV PRN (14:40)
[2019-12-29 15:17] LABS: PROTHROMBIN TIME 10.5 secs (10.8-13.4)
[2019-12-29 15:28] VITALS: BP 121/78
--- NOTE | 2019-12-29 15:30 | NUR ---
PT BACK TO UNIT FROM OR. OR NURSES STATED THAT SURGERY WAS NOT DONE. PT'S MOTHER REFUSED CONSENT TO SURGERY AND INSISTS PT TO BE TRANSFERRED TO [facility] IN [place]. CM IS ON THE CASE
[2019-12-29 15:32] LABS: FREE T4 (FREE THYROXINE) 1.21 ng/dL (0.76-1.46); MAGNESIUM 2.6 mg/dL (1.8-2.4); PHOSPHORUS 3.4 mg/dL (2.5-4.9); THYROID STIMULATING HORMONE 1.69 uIU/mL (0.34-3.74)
--- NOTE | 2019-12-29 15:43 | NUR ---
DISCHARGE PLANNING: RECEIVED AN ORDER FOR HLOC TRANSFER TO [facility] PER FAMILY'S REQUEST. CONTACTED PATIENT'S MOTHER ERLINDA PITTS AT [phone], NO ANSWER. LEFT MESSAGE WILL FOLLOW UP. REFERRAL SENT TO [facility]. WILL FOLLOW UP. Addendum: 12/29/19 at 1709 by Jacque Beavers CM CONTACTED PATIENT'S MOTHER ERLINDA AT [phone] TO DISCUSS HLOC TRANSFER AND IS IN AGREEMENT. SHE STATED THAT SHE PREFERS [facility]. SHE ALSO STATED THAT [facility] [employer] [facility] [facility] [phone]. CONTACTED [facility] ABLE TO SPEAK TO ARASELI. PER ARASELI PATIENT IS NON AMBULATORY AT BASELINE, USES A TILTING SPACE WHEELCHAIR. PATIENT IS UNDER [facility] AND SENIOR ENGINEERING TECH IS CANDELARIO NINO [phone]. PER ARASELI THEY REQUIRE COVID NEGATIVE RESULTS AT LEAST 48 HOURS PRIOR TO TRANSFER. ABLE TO DO NON COMPLEX WOUND CARE AT THEIR FACILITY. SHE ALSO MENTIONED THAT THEIR DIRECTOR AIRPORT IS AN RN AND SOMETIMES ABLE TO DO IV MEDS DEPENDING ON HIS SCHEDULE. RECEIVED A CALL FROM DAGMAR OF [facility] TRANSFER CENTER, STATING THAT THEY ARE DECLINING THE CASE BECAUSE THEY DO NOT ACCEPT HLOC PER FAMILY'S REQUEST. DR. CINTRON MADE AWARE. HE STATED THAT PATIENT NEEDS HLOC TRANSFER DUE TO THIS IS A COMPLEX CASE WITH HISTORY OF JG TUBE, INTELLECTUAL DELAY AND STENT. HE ALSO STATED THAT PATIENT WILL BE NEED A COMPLEX POST OP CARE. HE ALSO STATED THAT TO TRY OTHER HOSPITALS. PATIENT'S MOTHER MADE AWARE. SHE STATED THAT IS NOT WHAT ARASELI FROM [employer] TOLD HER, THAT SHE TOLD HER THAT PATIENT WILL BE TRANSFERRED TO [facility] AT 8 PM TONIGHT. EXPLAINED IT TO HER THAT NO ONE WILL BE CONTACTING HER REGARDING EXCEPT US. I ALSO ASKED HER IF I CAN SEND INQUIRIES TO OTHER FACILITIES, SHE STATED "NO ONLY [facility]". SHE ALSO SOUNDED THREATENING WHEN SHE SAID "IF SOMETHING HAPPENED TO MY SON, SOMEONE HAS TO PAY." PER ARASELI OF [facility], SHE DID NOT TELL THE PATIENT'S MOTHER THAT. SHE STATED SHE TOLD HER THAT WE ARE WORKING ON IT. SHE ALSO MENTIONED THAT THE MOTHER IS KIND OF FRANTIC AT THIS TIME AND PROBABLY THAT IS WHY SHE IS SOMEWHAT CONFUSED WITH ALL THE INFORMATION SHE IS GETTING RIGHT NOW. CONTACTED SENIOR ENGINEERING TECH CANDELARIO NINO OF [facility] AT [phone] AND DISCUSSED THE PLAN FOR HLOC AND WHAT THE MOTHER TOLD ME. SHE STATED "WE ALWAYS GO WITH FAMILY'S REQUEST HOWEVER EVEN IF PATIENT IS NOT CONSERVED AND IT IS MEDICALLY NEEDED WE CAN GO WHATEVER IS BEST FOR THE PATIENT." REFERRAL SENT TO [facility] AND [facility]. REPORT GIVEN TO ICU CHARGE NURSE SURESH AND CHARGE NURSE PARVEZ. Addendum: 12/30/19 at 0919 by Jacque Beavers CM PER [facility], NO BEDS AVAILABLE AT THIS TIME HOWEVER WILL KEEP THE PATIENT ON THEIR LIST. Addendum: 12/30/19 at 1051 by Zaira Bajwa CM DC PLANNING: RECEIVED A CALL FROM [facility] SPOKE WITH KUSUM. STATED SHE IS STILL WORKING ON IT, REACHING OUT THE SPECIALIST, UPDATED CLINICALS , ONCE SHE HAS ACCEPTING DR WILL CALL BACK . CALLED DR CINTRON NOTIFIED HIM THAT [facility] AND [facility] DENIED THE CASE AND [facility] STILL WORKING ON IT, AND WILL REACH HIM TO DISCUSS THE CASE. CM TO FOLLOW. Addendum: 12/30/19 at 1506 by Zaira Bajwa CM DC PLANNING: RECEIVED A CALL FROM [facility] SPOKE WITH KUSUM AFTER THE DISCUSSION OF DR CINTRON AND DR LARA [facility] ACCEPTED PATIENT, KUSUM REQUESTED TRANSFER AGREEMENT TO BE SIGNED. TRANSFER AGREEMENT SIGNED BY DEMOND GALLEGOS AND [facility]ED [place] [facility]. CALLED PATIENT'S TRANSPORTATION MAINTENANCE OPERATOR BRYAN NOTIFIED HER [facility] ACCEPTED PATIENT AND PROVIDED THE PHONE NUMBER. CALLED PATIENT MOTHER ERLINDA AT [phone] NOTIFIED HER [facility] ACCEPTED PATIENT. ERLINDA WAS SCREAMING WHY NOT [facility] I EXPLAINED THAT [facility] DIDN'T ACCEPT AND ALSO [facility] DON'T HAVE A BED AND [facility] DENIED THE CASE. ERLINDA STILL TALKING TO HIGH TONE VOICE AND SAID "IS THIS POLITICS OR COVID" I EXPLAINED FOR THE EMERGENT NEEDS FOR SURGERY, ERLINDA SAID " WHAT EVER " CM TO FOLLOW Addendum: 12/30/19 at 1534 by Zaira Bajwa CM DC PLANNING: CALLED [phone] [facility] TRANSFER [employer] SPOKE WITH KUSUM, STATED RECEIVED TRANSFER AGREEMENT LETTER, FINANCIALLY CLEARED ,AWAITING FOR BED NUMBER. ARRANGED TRANSPORT WITH [facility]ED IT WILL CALL. [facility] # [phone] Addendum: 12/31/19 at 1109 by Rommel You SS JASWANT CONTACTED SELINA MILLER [phone]. JASWANT INFORMED HER THAT PATIENT WAS TRANSFERRED TO [facility]. ARASELI MILLER STATED THAT SHE WOULD INFORM IRC WORKER BECAUSE IRC WORKER IS NOT IN OFFICE TODAY. NO FURTHER NEEDS IDENTIFIED.
[2019-12-29 15:47] LABS: CHOL/HDL RATIO 4.9 (1-4.5)
[2019-12-29] MEDS: LEVOFLOXACIN 750 MG/D5W PREMIX 150 ML IV SCH (16:00)
--- NOTE | 2019-12-29 17:00 | NUR ---
PT VOMITED X1 CLEAR BROWN TINGED FLUID. ZOFRAN GIVEN ORDERED
[2019-12-29] MEDS: ONDANSETRON 4 MG/2 ML VIAL IM/IVP PRN ×2 (17:18→22:02)
--- NOTE | 2019-12-29 17:51 | NUR ---
RECEIVED CALL FROM [facility] MAN NUBIA ([phone]), NUBIA REQUESTS MORE INFORMATION REGARDING WHY THIS PATIENT NEEDS TO TRANSFER, ASKED [facility] CHARGE NURSE PARVEZ TO CALL [facility] TO PROVIDE MORE DETAILS REGARDING THIS PATIENT.
--- NOTE | 2019-12-29 18:00 | NUR ---
GAVE REPORT TO [facility] TODDLER CAREGIVER NUBIA ([phone])
--- NOTE | 2019-12-29 18:10 | NUR ---
I PROTOTYPE MACHINIST NUBIA CALLED BACK AND STATED THAT [facility] IS CURRENTLY AT [facility], NO BEDS AVAILABLE IN THE NEAR FUTURE, CASE DECLINED AT THIS TIME.
--- NOTE | 2019-12-29 19:15 | NUR ---
RECEIVED REPORT FROM BENJA RN, PT HAS J TUBE, AND NGT TO RIGHT NARE HOOKED TO LOW INTERMITTENT SUCTION, LUNG SOUNDS CLEAR, S1 AND S2 HEART SOUNDS HEARD, ABDOMEN RIGID AND DISTENDED, BOWEL SOUNDS ACTIVE, VSS, PT HAS ABNORMAL FLEXION OF ARMS, EYES PERRL 3MM GLANCING AROUND NON TRACKING, SAFETY PROTOCOLS IN PLACE, WILL CONTINUE TO MONITOR PT
[2019-12-29 20:00] VITALS: BP 118/62
[2019-12-29] MEDS: levETIRAcetam 100 MG/ML ORASYR GT SCH (21:00)
[2019-12-29] MEDS: BENZTROPINE 1 MG TAB GT SCH (21:00)
[2019-12-29] MEDS: risperiDONE 1 MG TAB GT SCH (21:00)
--- NOTE | 2019-12-29 21:00 | NUR ---
MOTHER ERLINDA CALLED FOR AN UPDATE. PLAN OF CARE DISCUSSED. PATIENT IS IN STABLE CONDITION. FLACC 0. NO S/S ACUTE DISTRESS. SAFETY PRECAUTIONS IN PLACE. CALL LIGHT WITHIN REACH.
--- NOTE | 2019-12-29 23:17 | NUR ---
PATIENT RESTING COMFORTABLY IN BED. NO S/S ACUTE DISTRESS. FLACC 0. SAFETY PRECAUTIONS IN PLACE. CALL LIGHT WITHIN REACH AT ALL TIMES.
[2019-12-30] VITALS: BP 115/83
[2019-12-30] MEDS: DEXTROSE 5% 1,000 ML IV SCH ×2 (01:10→13:40)
--- NOTE | 2019-12-30 02:36 | NUR ---
Patient's Plan of Care was discussed and reviewed with VIDEO EFFECTS EDITOR: CHERI VICENTE
[2019-12-30] MEDS: ONDANSETRON 4 MG/2 ML VIAL IM/IVP PRN ×2 (02:37→11:39)
[2019-12-30 03:31] LABS: APPEARANCE,URINE CLOUDY (CLEAR); BILIRUBIN,URINE 1+ (NEGATIVE); BLOOD, URINE 2+ (NEGATIVE); COLOR,URINE YELLOW (YELLOW); LEUKOCYTE ESTERASE ,URINE NEGATIVE (NEGATIVE); NITRITE, URINE NEGATIVE (NEGATIVE); UGLUCOSE NEGATIVE (NEGATIVE)
[2019-12-30 03:43] LABS: RBC,URINE 11-20 (MOD) /HPF (0-5); WBC,URINE 0-5 /HPF (0-5)
[2019-12-30 03:48] LABS: BARBITURATE, URINE POSITIVE ng/ml (NEG <=200); BENZODIAZEPINE, URINE NEGATIVE ng/mL (NEG <=200); CANNABINOID, URINE NEGATIVE ng/mL (NEG <=50); COCAINE, URINE NEGATIVE ng/mL (NEG <=300); OPIATE, URINE POSITIVE ng/mL (NEG <=2000); PHENCYCLIDINE SCREEN,URINE NEGATIVE ng/mL (NEG <=25)
[2019-12-30 03:56] VITALS: BP 112/84
--- NOTE | 2019-12-30 04:02 | NUR ---
MOTHER CALLED FOR UPDATE ON SON'S TRANSFER. INFORMED HER THAT CM IS WORKING ON THE TRANSFER AND WE CAN UPDATE HER BETTER IN THE MORNING. PATIENT CONTINUES WITH INTERMITTENT EPISODES OF EMESIS, VITALS STABLE AT THIS TIME.
[2019-12-30 04:54] LABS: BASOPHILS # (AUTO) 0.1 K/uL (0.00-0.22); BASOPHILS % (AUTO) 0.7 % (0.0-2.0); EOSINOPHILS # (AUTO) 0.1 K/uL (0-0.4); EOSINOPHILS % (AUTO) 1.2 % (0.0-4.0); HEMATOCRIT 38.7 % (36-52); HEMOGLOBIN 13.4 g/dL (12.0-18.0); LYMPHOCYTES # (AUTO) 1.2 K/uL (2.0-11.5); LYMPHOCYTES % (AUTO) 11.7 % (20.5-51.1); MEAN CORPUSCULAR HEMOGLOBIN 32 pg (27-31); MEAN CORPUSCULAR HGB CONC 35 g/dL (33-37); MEAN CORPUSCULAR VOLUME 92.3 fL (80-94); MONOCYTES # (AUTO) 1.1 K/uL (0.8-1.0); MONOCYTES % (AUTO) 10.8 % (1.7-9.3); NEUTROPHILS % (AUTO) 75.6 % (42.2-75.2); PLATELET COUNT (AUTO) 423 K/uL (140-450); RED BLOOD CELL COUNT(AUTO) 4.19 MIL/uL (4.20-6.10); RED CELL DISTRIBUTION WIDTH 14.5 % (11.6-13.7); WHITE BLOOD COUNT (AUTO) 10.5 K/uL (4.8-10.8)
[2019-12-30 06:09] LABS: ANION GAP 10.2 (8-16); CARBON DIOXIDE 34.4 mmol/L (21-32); CREATININE 0.6 mg/dL (0.6-1.3)
--- NOTE | 2019-12-30 06:13 | NUR ---
MULTIPLE EPISODES OF EMESIS. PATIENT'S HOB UP 30 DEGREES. CONTINUES ON INTERMITTENT SUCTION VIA NGT. MEDICATED ORDERED FOR NAUSEA/VOMITING.
[2019-12-30 06:29] LABS: POTASSIUM 2.6 mmol/L (3.5-5.1)
--- NOTE | 2019-12-30 07:05 | NUR ---
RECEIVED REPORT FROM PM RN. PT CAME FROM [facility]. CC: VOMITING DX: [id number]. HX: SHAKING BABY SYNDROME, GERD, CONSTIPATION. ALLERGIES: PCN, SULFATE, VALPORIC ACID, DICLOXACILLIN. FULL CODE. IV: RT UPPER ARM 20G RUNNING D5@ 80,LS, RT FT 20G SL. PT IS NPO, WITH NG TUBE AT INTERMITTENT SUCTION. SKIN IS INTACT. KT+ 2.6. PLAN: TRANSFER TO [facility], GIVE SANDIE, Q4HR ZOFRAN, POSSIBLE DANIEL CATH INSERTION.
--- NOTE | 2019-12-30 07:07 | NUR ---
ENDORSED PATIENT TO AM SHIFT NURSE FOR CONTINUITY OF CARE.
[2019-12-30 08:00] VITALS: BP 122/92
[2019-12-30 08:08] LABS: T4 (THYROXINE) 10.5 ug/dL (4.5-12.0)
[2019-12-30] MEDS: BENZTROPINE 1 MG TAB GT SCH (08:26)
[2019-12-30] MEDS: levETIRAcetam 100 MG/ML ORASYR GT SCH (08:26)
[2019-12-30] MEDS: risperiDONE 1 MG TAB GT SCH (08:27)
--- NOTE | 2019-12-30 08:54 | NUR ---
PATIENT HAS BEEN SCREENED AND CATEGORIZED HIGH NUTRITION RISK. PATIENT WILL BE SEEN WITHIN 1-2 DAYS OF ADMISSION. 12/30/19-12/31/[address]
[2019-12-30] MEDS ORDERED: PANTOPRAZOLE 40 MG INJ VIAL IVP SCH (09:00)
--- NOTE | 2019-12-30 09:00 | NUR ---
DID NOT PASS MEDICATIONS. PT IS NPO. NG TUBE PLACED, INTERMITTENT SUCTION.
--- NOTE | 2019-12-30 09:00 | NUR ---
DID NOT PASS MEDICATIONS, PT IS NPO WITH NG TUBE. PT IS STILL VOMITING, COFFEE GROUND EMESIS.
--- NOTE | 2019-12-30 10:21 | NUR ---
SOCIAL WORK NOTE: Patient's Orientation Unable To Assess Information Provided By ARASELI MILLER - ADMIN - [facility] Comments SW WAS UNABLE TO MEET PATIENT AT BEDSIDE. JASWANT CONTACTED [facility] TO COMPLETE ASSESSMENT AND WAS GIVEN ADMIN - ARASELI PAUL [phone] TO COMPLETE ASSESSMENT. JASWANT COMPLETED ASSESSMENT WITH ARASELI. SW LEFT WITH PATIENT'S MOTHER, ERLINDA PITTS. Reimbursement Representative, Realtionship and Phone Number ERLINDA PITTS MOTHER/HEALTHCARE DECISION MAKER [phone] JOSE RAUL PITTS GRANDMOTHER [phone] ARASELI MILLER ADMIN - [facility] [phone] KAMLA NINO [facility] [employer]OSS [phone] Healthcare Power of Hand Cloth Examiner No Does Patient Have a POLST No Explanation Of Identifying Problems PATIENT IS A 29-YEAR-OLD MALE ADMITTED FOR PNEUMOPERITONEUM. PATIENT HAS PMHX OF CEREBRAL PALSY, DEVELOPMENTAL DELAY, AND SEIZURE DISORDER. PER ARASELI, PATIENT IS NONVERBAL AND NONAMBULATORY. ARASELI PROVIDED [facility] APPLIANCE LINE ASSEMBLER'S CONTACT INFORMATION. PATIENT WAS ADMITTED FROM [facility] [phone]. PER ARASELI, PATIENT'S MOTHER HAD CONCERNS REGARDING PATIENT BEING TRANSFERRED TO [place] OR [facility]. JASWANT CONTACTED PATIENT'S MOTHER BUT WAS UNABLE TO REACH HER. JASWANT LEFT PATIENT'S MOTHER VM. Admitted From Assisted Living/Resident Pre-Admission Level Of Functioning Status Total Care Level Of Functioning Comment PATIENT IS NONVERBAL AND NONAMBULATORY AND REQUIRES TOTAL ASSISTANCE. Prior Resources/Services Used In Last 12 Months [facility] Prior Resources/Service Comments [facility] [employer]OSS: KAMLA NINO - [phone] Prior DME Wheelchair Dialysis Comments N/A Other Living Situation/Comment PATIENT IS A RESIDENT AT [facility]. Patient Had Caregiver No Home Support No Caregiver Issues Financial Issues No Known Financial Issue Referral To The Financial Counselor Needed No Explanation And Or Other Factors Affecting/Possible DC Needs PATIENT REQUIRES NEGATIVE COVID TEST WITHIN 48 HOURS OF DISCHARGE. PER ARASELI, [facility] WILL PROVIDE TRANSPORTATION. Discharge Plan Comments TENTATIVE DISCHARGE PLAN IS FOR PATIENT TO RETURN TO [facility]. DC Plan Status Initiated
--- NOTE | 2019-12-30 10:58 | NUR ---
NEW ORDERS FROM DR CINTRON: STAT LACTIC ACID, STAT KUB, DANIEL INSERTION.
--- NOTE | 2019-12-30 11:00 | NUR ---
GAVE K RIDER WITH LIDOCAINE. PTS K+ LEVEL WAS 2.6. INSERTED DANIEL CATH, 16 TAMAZIGHT. READJUSTED NG TUBE. EMESIS OUTPUT IS 250MLS.
--- NOTE | 2019-12-30 11:45 | NUR ---
PER PADMA, (RN ASSIGNED) THAT THEY ARE UNABLE TO DO KUB XRAY DUE TO PT'S CONSTANT VOMITING. NGT OUT PUT 300 MLS SINCE LAST NIGHT, COFFEE GROUND IN COLOR. PAGED DR CINTRON'S EXCHANGED, VOICEMAIL MESSAGE LEFT WELL ON HIS CELL PHONE.
[2019-12-30 12:00] VITALS: BP 122/67
--- NOTE | 2019-12-30 13:23 | NUR ---
12/30/19 RD INITIAL ASSESSMENT COMPLETED PLEASE REFER TO NUTRITION ASSESSMENT UNDER CARE ACTIVITY FOR ESTIMATED NUTRITIONAL NEEDS. 1. CONTINUE NOTHING BY MOUTH AND NO TUBE FEEDINGS AT THIS MOMENT 2. CONSIDER PARENTERAL NUTRITION IF PATIENT WILL BE NPO FOR 7-[address] TO FOLLOW-UP 2-3 DAYS, HIGH RISK ALYSSA WALKER, RD
--- NOTE | 2019-12-30 14:50 | NUR ---
DR CINTRON COMPLETED ROUND. ACCORDING TO HIM, PT WILL BE TRANSFERRED TO [facility]. FAMILY MEMBER NOTIFIED. WAITING FOR CM FOR FURTHER INSTRUCTIONS.
--- NOTE | 2019-12-30 15:07 | NUR ---
COMPLETED ROUND. PT IS IN BED. NO SIGNS OF EMESIS. PT IS RESTING. RESPIRATIONS ARE EVEN AND UNLABORED. VISIBLE RISE AND FALL OF CHEST.
[2019-12-30] MEDS ORDERED: levaquin IV (15:17)
[2019-12-30 16:00] VITALS: BP 116/83
[2019-12-30] MEDS: LEVOFLOXACIN 750 MG/D5W PREMIX 150 ML IV SCH (16:18)
[2019-12-30] MEDS ORDERED: LORazepam 2 MG/ML VIAL IVP PRN (16:20)
--- NOTE | 2019-12-30 16:57 | NUR ---
@1620: found pt awake and rolling his eyes for 2-3 mins. vital signs stable, on room air with o2 sats at 96%. as per RN assigned Kiersten, pt does that when awake and seems like that his baseline. notified Dr. Nova. new orders given.
--- NOTE | 2019-12-30 17:00 | NUR ---
GAVE REPORT TO NURSE MEADOWS AT [facility]. PT WILL BE PICKED UP BY [facility] AT 2000. FARMER AND GRAZIER PARVEZ NOTIFIED. DC PACKET IS COLLECTED AND COMPLETED. LEFT VOICEMAIL FOR ERLINDA, PTS MOTHER, TO MAT INSPECTOR WHEEL CHAIR FOR PT.
--- NOTE | 2019-12-30 17:09 | NUR ---
PER ROD SOSA ASSIGNED, PT'S ROOM AT [facility] WILL BE READY AT 1830 HRS. CALLED [facility], SPOKE WITH TRAY AND ACTIVATED THE WILL CALL AT 1830 HRS. RN ASSIGNED MADE AWARE.
[2019-12-30 17:13] VITALS: BP 116/83
[2019-12-30] MEDS ORDERED: levETIRAcetam 500 MG in NACL 0.9% 100 ML IV SCH (17:30)
--- NOTE | 2019-12-30 18:12 | NUR ---
TRIED TO CONTACT TO PTS MOTHER FOR UPDATE. LEFT VOICEMAIL. TRIED TO CONTACT PTS CAREGIVER. UNABLE TO LEAVE A VOICEMAIL.
--- NOTE | 2019-12-30 18:51 | NUR ---
[facility] CALLED BACK. ORGANIZATIONAL EFFECTIVENESS DIRECTOR TIME WON'T BE UNTIL 1999 TONIGHT.
--- NOTE | 2019-12-30 19:00 | NUR ---
TRANSFER OF CARE TO PM OSIEL VELASCO. PT IS STABLE. NO SIGNS OF VOMITING. PT IS RESTING IN BED. ROD CARTAGENA IS AWARE THAT THE PT WILL BE TRANSFERRED TONIGHT TO [facility]. [facility] IS PICKING UP THE PT AT 1999. UNABLE TO REACH PTS MOTHER AND CAREGIVER. LEFT VOICEMAIL FOR BOTH.
--- NOTE | 2019-12-30 19:10 | NUR ---
RECEIVED BEDSIDE ENDORSEMENT FROM ROD ROUSE. NO SOB, ON NGT WITH SUCTION SET UP, HAS JPEG, INTACT, HAS DANIEL CATH IN PLACE, PETR 20 G, INFUSING IVF, AND RT FOOT SALINE LOCK, INTACT, HOB ELEVATED, SEIZURE PROTECTION IN PLACE, FALL PRECAUTION IN PLACE, WILL BE TRANSFERRED TO [facility], WAITING FOR TRANSPORT, PLAN OF CARE DISCUSSED, CALL LIGHT WITHIN REACH.
--- NOTE | 2019-12-30 20:15 | NUR ---
[facility] TRANSPORT ARIVED AT 1999. CHECKED AND CLEANED PATIENT, REMOVED I.D. BAND, REMOVED IV CANNULA'S AT PETR AND RT FOOT, PATIENT IS NOT IN DISTRESS, NO SEIZURE EPISODE, WITH DANIEL CATH AND NGT IN PLACE, J-PEG IN PLACE AND INTACT, ROD GUTIERREZ ALREADY GAVE REPORT TO [facility] VELASCO, GAVE THE D/C PACKET TO [facility] TRANSPORT. PATIENT LEFT THE HOSPITAL AT 2014 WITH NO SOB, AND NOT IN DISTRESS, CALLED THE MOTHER AT 2019 TO INFORM THAT SHE NEEDS TO CARBON DIOXIDE OPERATOR THE WHEELCHAIR, LEFT VOICEMAIL, AWAITING CALL BACK. Addendum: 12/30/19 at 2219 by Serena Mandujano RN FLU VACCINE STATUS UNKNOWN AND NOT GIVEN, UNABLE TO CONTACT MOTHER.
== END 2019-12-30 20:15 | disposition short-term general hospital (02) | DRG 252 ==
LOC: MED 08:58 → MTU 12:41
PROVIDERS: ADMIT Family Medicine; ATTEND Family Medicine
DX: K94.23 Gastrostomy malfunction (principal); A41.9 Sepsis, unspecified organism; K65.9 Peritonitis, unspecified; E87.6 Hypokalemia; G80.9 Cerebral palsy, unspecified; G40.909 Epilepsy, unspecified, not intractable, without status epilepticus; N20.0 Calculus of kidney; R13.10 Dysphagia, unspecified; N21.0 Calculus in bladder; M41.9 Scoliosis, unspecified; F39 Unspecified mood [affective] disorder; R74.01 Elevation of levels of liver transaminase levels; Z20.828 Contact with and (suspected) exposure to other viral communicable diseases; Y83.3 Surgical operation with formation of external stoma as the cause of abnormal reaction of the patient, or of later complication, without mention of misadventure at the time of the procedure; K44.0 Diaphragmatic hernia with obstruction, without gangrene; Z98.2 Presence of cerebrospinal fluid drainage device; Z88.0 Allergy status to penicillin; Z88.8 Allergy status to other drugs, medicaments and biological substances; Z79.899 Other long term (current) drug therapy; Q65.89 Other specified congenital deformities of hip
CPT/HCPCS: 36415; 71045; 74018; 80048; 80053; 80305; 81001; 82150; 83036; 83605; 83690; 83735; 83880; 84100; 84132; 84436; 84439; 84443; 84479; 84484; 85025; 85610; 85730; 86886; 86900; 86901; 86920; 87040; 87081; 93005; 99291; C1758; C9113; J1953; J1956; J2001; J2405; J3480; J3490; J7030; J7060; Q0092; Q9967

== ENCOUNTER 2020-03-06 19:16 | Inpatient (IN) | payer MEDICAID, SELFPAY ==
[~2020-03-06] VITALS: Ht 165.1 cm; Wt 81.2 kg
[~2020-03-06 19:16] MED LIST changes: +ACET-2619 GT; +ASCO500T95 GT; +BISA-213 RC; +CALC-575 GT; +CHOL200035 GT; +DEXT15SY7 GT; +DOCU100C16 GT; -FERR75LI22 GT; +FISH1SGL18 GT; +IBUP-1842 GT; +IMO2 GT; +IPRA3AMP2 IH; -LACO10SO GT; +LACO10SO3 GT; +LANS15EC28 GT; +LORA10TA19 GT; +MULT9LIQ2 GT; +NA P133E RC; +ONDA8TAB87 GT; -RISP0.2515 GT; +RISP0.5T3 GT; -RISP1TAB27 GT; +ZINC113C4 TP; -[UNRECOGNIZED DRUG - CODE] GT; +levaquin IV
[2020-03-06 19:23] VITALS: BP 112/65
--- NOTE | 2020-03-06 21:39 | NUR ---
PT TAKEN TO BED #12
--- NOTE | 2020-03-06 21:52 | NUR ---
PT TAKEN W/ RN FOR ASSISTANCE TO CT VIA [employer].
--- NOTE | 2020-03-06 22:04 | NUR ---
EKG PERFORMED AT BEDSIDE. EKG READS SINUS RHYTHM @ 86
--- NOTE | 2020-03-06 22:05 | NUR ---
PT IS A 29 YR OLD MALE BIBA FROM [facility] WITH CHIEF COMPLAINT OF ALOC. PT IS AOX1. PER [facility], PT HAS BEEN ALOC SINCE 0700 SIMILAR TO EPISODE OF HIGH AMMONIA LEVELS. PER [facility], PT IS NORMALLY AWAKE AND ALERT. PT IS RESPONSIVE TO PAIN. PT HAS SPONTANEOUS MOVEMENT. PT UNABLE TO FOLLOW COMMANDS. PT LUNG SOUNDS CLEAR BILATERALLY. PT HEART SOUNDS WNL. PT HAS G-TUBE. PT GI WNL. PT HAS NO APPARENT SKIN BREAKDOWN. 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 ALLERGIES = PCN, VALPROIC ACID, DICOXACILLIN.
--- NOTE | 2020-03-06 22:30 | NUR ---
# 16 FR Urinary catheter inserted utilizing sterile technique. Immediate return of 100 ml yellow urine noted. Urine sample collected and sent to lab. Pt tolerated procedure well.
--- NOTE | 2020-03-06 22:35 | NUR ---
Pt repositioned, perineal care provided and new diaper placed on pt. Pt tolerated procedure well.
--- NOTE | 2020-03-06 22:45 | NUR ---
24 IV placed in right big toe. Unable to pull labs from IV. Lab made aware pt needs to be drawn.
[2020-03-06 23:09] LABS: APPEARANCE,URINE CLEAR (CLEAR); BILIRUBIN,URINE NEGATIVE (NEGATIVE); BLOOD, URINE NEGATIVE (NEGATIVE); COLOR,URINE YELLOW (YELLOW); LEUKOCYTE ESTERASE ,URINE NEGATIVE (NEGATIVE); NITRITE, URINE NEGATIVE (NEGATIVE); UGLUCOSE NEGATIVE (NEGATIVE)
--- NOTE | 2020-03-06 23:15 | NUR ---
Per Lab , they are unable to obtain blood labs at this time. LETY made aware .
[2020-03-06 23:22] LABS: BARBITURATE, URINE POSITIVE ng/ml (NEG <=200); BENZODIAZEPINE, URINE NEGATIVE ng/mL (NEG <=200); CANNABINOID, URINE NEGATIVE ng/mL (NEG <=50); COCAINE, URINE NEGATIVE ng/mL (NEG <=300); OPIATE, URINE NEGATIVE ng/mL (NEG <=2000); PHENCYCLIDINE SCREEN,URINE NEGATIVE ng/mL (NEG <=25)
--- NOTE | 2020-03-07 00:10 | NUR ---
LETY Said at bedside for ultrasound IV.
--- NOTE | 2020-03-07 00:25 | NUR ---
LETY unable to obtain IV access point for lab draw.
[2020-03-07] MEDS ORDERED: LACTULOSE 20 GM/30 ML UDC GT ONE (00:50)
--- NOTE | 2020-03-07 01:23 | NUR ---
JACOBY POTTER & RADAMES SWABS COLLECTED AND WALKED TO LAB.
[2020-03-07] MEDS: DEXTROSE 5% 1,000 ML IV SCH ×3 (01:55→21:55)
--- NOTE | 2020-03-07 04:00 | NUR ---
Pt resting in bed, locked and in lowest position, HOB elevated, side rail x 2 for pt safety. Visible rise and fall of chest. Audible snoring heard from pt. Pt provided additional blanket for extra warmth at this time.
--- NOTE | 2020-03-07 06:45 | NUR ---
PT RESTING IN BED, LOCKED AND IN LOWEST POSITION, HOB ELEVATED, SIDE RAIL X 2 FOR PT SAFETY. VSS. NO ACUTE DISTRESS NOTED.
--- NOTE | 2020-03-07 07:11 | NUR ---
PATIENT HAS BEEN SCREENED AND CATEGORIZED LOW NUTRITION RISK. PATIENT WILL BE SEEN WITHIN 7 DAYS OF ADMISSION. 03/14/20 SHIN CYR MBA, RD
--- NOTE | 2020-03-07 07:28 | NUR ---
REPORT PROVIDED TO ROD LAU FOR [facility].
[2020-03-07 07:44] LABS: BASOPHILS # (AUTO) 0.1 K/uL (0.00-0.22); BASOPHILS % (AUTO) 1.1 % (0.0-2.0); EOSINOPHILS # (AUTO) 0.2 K/uL (0-0.4); EOSINOPHILS % (AUTO) 3.5 % (0.0-4.0); HEMATOCRIT 38.7 % (36-52); LYMPHOCYTES # (AUTO) 1.2 K/uL (2.0-11.5); LYMPHOCYTES % (AUTO) 17.8 % (20.5-51.1); MEAN CORPUSCULAR HEMOGLOBIN 33 pg (27-31); MEAN CORPUSCULAR HGB CONC 34 g/dL (33-37); MEAN CORPUSCULAR VOLUME 97.4 fL (80-94); MONOCYTES # (AUTO) 0.4 K/uL (0.8-1.0); NEUTROPHILS # (AUTO) 4.9 K/uL (1.8-7.7); NEUTROPHILS % (AUTO) 71.6 % (42.2-75.2); PLATELET COUNT (AUTO) 324 K/uL (140-450); RED BLOOD CELL COUNT(AUTO) 3.97 MIL/uL (4.20-6.10); RED CELL DISTRIBUTION WIDTH 15.8 % (11.6-13.7); WHITE BLOOD COUNT (AUTO) 6.9 K/uL (4.8-10.8)
[2020-03-07 07:57] LABS: ALBUMIN 3.5 g/dL (3.4-5.0); ANION GAP 11.6 (8-16); ASPARTATE AMINOTRANSFERASE 75 U/L (15-37); CARBON DIOXIDE 29.2 mmol/L (21-32); CHLORIDE 101 mmol/L (98-107); CREATININE 0.5 mg/dL (0.6-1.3); GFR ARICAN-AMERICAN 251 mL/min (>90); GLUCOSE 111 mg/dL (74-106); POTASSIUM 3.8 mmol/L (3.5-5.1); SODIUM SERUM 138 mmol/L (136-145); TOTAL BILIRUBIN 0.3 mg/dL (0.0-1.0); UREA NITROGEN, BLOOD 8 mg/dL (7-18)
--- NOTE | 2020-03-07 08:00 | NUR ---
Patient appears to be resting comfortably in bed. Vital Signs within normal limits. Respirations even and unlabored.
[2020-03-07 08:03] LABS: ACETAMINOPHEN < 0.5 ug/ml (10-30); SALICYLATE < 2.8 mg/dL (2.8-20.0)
[2020-03-07] MEDS ORDERED: LORazepam 2 MG/ML VIAL IM/IVP PRN (08:20)
[2020-03-07] MEDS ORDERED: SODIUM PHOSPHATE 118 ML ENEM RC PRN ×2 (08:20→19:00)
[2020-03-07] MEDS ORDERED: MORPHINE SULFATE 2 MG/ML SYR IVP PRN (08:20)
[2020-03-07] MEDS ORDERED: DIAZEPAM 20 MG RC PRN (08:20)
[2020-03-07] MEDS ORDERED: HYDROcodone/APAP 5/325 MG 1 TAB TAB PO PRN (08:20)
[2020-03-07] MEDS ORDERED: MAG SULF 2000 MG/WATER PREMIX 50 ML IV PRN (08:20)
[2020-03-07] MEDS ORDERED: LORATADINE 10 MG TAB GT PRN (08:20)
[2020-03-07] MEDS ORDERED: POTASSIUM CHLORIDE 10 MEQ TABER PO PRN (08:20)
[2020-03-07] MEDS: NACL 0.9% 1,000 ML IV SCH (08:20)
[2020-03-07] MEDS ORDERED: bisacodyL 10 MG SUPP RC PRN (08:20)
[2020-03-07] MEDS ORDERED: ACETAMINOPHEN 325 MG TAB PO PRN (08:20)
[2020-03-07] MEDS ORDERED: DOCUSATE SODIUM 100 MG GELCAP PO PRN (08:20)
[2020-03-07] MEDS ORDERED: ONDANSETRON 4 MG/2 ML VIAL IM/IVP PRN (08:20)
[2020-03-07] MEDS ORDERED: LOPERAMIDE 2 MG CAP PO PRN (08:20)
[2020-03-07] MEDS ORDERED: ZOLPIDEM 5 MG TAB PO PRN (08:20)
[2020-03-07] MEDS: METOCLOPRAMIDE 10 MG/10 ML SYRP UDC GT SCH ×2 (09:00→13:12)
[2020-03-07] MEDS ORDERED: LOVENOX 1MG/KG Q12H SUBQ SCH (09:00)
[2020-03-07] MEDS ORDERED: NON-FORMULARY ITEM (Cholecalciferol (Vitamin D3) (Vitamin D3) 2,000 U) GT SCH (09:00)
[2020-03-07] MEDS: ASCORBIC ACID 500 MG TAB GT SCH ×2 (09:00→23:37)
[2020-03-07] MEDS: levETIRAcetam 100 MG/ML ORASYR GT SCH ×2 (09:00→23:42)
[2020-03-07] MEDS ORDERED: LACTULOSE GT SCH (09:00)
[2020-03-07] MEDS ORDERED: NON-FORMULARY ITEM (Lacosamide (Vimpat) 200 MG) GT SCH (09:00)
[2020-03-07] MEDS: CALCIUM CARBONATE 500 MG TAB GT SCH (09:00)
[2020-03-07] MEDS: ONDANSETRON 4 MG TAB GT SCH ×3 (09:00→17:15)
[2020-03-07] MEDS ORDERED: BENZTROPINE 1 MG TAB GT SCH (09:00)
[2020-03-07] MEDS: risperiDONE 1 MG TAB GT SCH ×2 (09:00→23:36)
[2020-03-07] MEDS ORDERED: NON-FORMULARY ITEM (Lansoprazole* (Prevacid 24Hr*) 30 MG) GT SCH (09:00)
[2020-03-07] MEDS: LACTULOSE 20 GM/30 ML UDC GT SCH ×2 (09:31→23:38)
[2020-03-07] MEDS ORDERED: ENOXAPARIN 80 MG/0.8 ML SYR SUBQ SCH (10:00)
[2020-03-07 10:24] LABS: PROTHROMBIN TIME 9.9 secs (10.8-13.4)
[2020-03-07 11:02] LABS: CHOL/HDL RATIO 6.8 (1-4.5); MAGNESIUM 3.4 mg/dL (1.8-2.4); PHOSPHORUS 3.9 mg/dL (2.5-4.9); THYROID STIMULATING HORMONE 2.65 uIU/mL (0.34-3.74)
--- NOTE | 2020-03-07 11:22 | NUR ---
SOCIAL WORK NOTE: Patient's Orientation Unable To Assess Information Provided By KVNG JARQUIN - RN OF FACILITY Comments SW WAS UNABLE TO MEET PATIENT AT BEDSIDE. SW COMPLETED ASSESSMENT WITH RN OF PATIENT'S RESIDENT FACILITY. Courtroom Deputy Or Calendar Clerk, Realtionship and Phone Number KVNG JARQUIN RN OF [facility] ERLINDA NEWELL [phone] Healthcare Power of Technical Associate No Does Patient Have a POLST No Identifying Problems No Social Work Triggers Is A Social Work Consult Needed No Mandate Report Filed No Explanation Of Identifying Problems PATIENT IS A 29-YEAR-OLD MALE ADMITTED FOR POSSIBLE HEPATIC ENCEPHALOPATHY. PATIENT HAS PMHX OF SHAKEN BABY SYNDROME, CEREBRAL PALSY, SEIZURES, HYDROCEPHALUS STATUS POST FORGING PRESS SETTER UP SHUNT. PER KVNG, PATIENT HAS NO CONSERVATOR AND PATIENT'S FAMILY IS INVOLVED IN CARE. KVNG STATED PATIENT HAS IRC WORKER NILSA PAUL, BUT SHE IS UNAWARE OF HER PHONE NUMBER AT THIS TIME. PATIENT WAS ADMITTED FROM [facility] 1. Admitted From Residential Care Pre-Admission Level Of Functioning Status Total Care Prior Resources/Services Used In Last 12 Months [facility] Prior Resources/Service Comments NILSA PAUL Prior DME Home Oxygen Wheelchair Dialysis Comments N/A Other Living Situation/Comment ICF - [facility] 1 Patient Had Caregiver No Home Support No Caregiver Issues Financial Issues No Known Financial Issue Referral To The Financial Counselor Needed No Factors/Needs No D/C Needs Identified Pt/Rep Participated In Discharge Plan Yes Patient/Family Agress With Discharge Plan Yes Discharge Plan Comments TENTATIVE DISCHARGE PLAN IS FOR PATIENT TO RETURN HOME. DC Plan Status Initiated
--- NOTE | 2020-03-07 12:00 | NUR ---
VSS. AWAKE, EYES OPEN AT THIS TIME. RESP EVEN AND UNLABORED.
[2020-03-07] MEDS ORDERED: MAGNESIUM CITRATE 300 ML BTL PO SCH (15:30)
--- NOTE | 2020-03-07 15:35 | NUR ---
Patient appears to be resting comfortably in bed. Vital Signs within normal limits. Respirations even and unlabored.
--- NOTE | 2020-03-07 15:40 | NUR ---
XRAY AT BEDSIDE AT THIS TIME
[2020-03-07] MEDS ORDERED: risperiDONE 1 MG TAB GT SCH (17:00)
--- NOTE | 2020-03-07 17:31 | NUR ---
PATIENT DIAPER CHANGED AND REPOSITIONED, RESP EVEN AND UNLABORED, AWAKE AND RESPONSIVE TO VERBAL STIMULI AT THIS TIME
--- NOTE | 2020-03-07 19:27 | NUR ---
REPORT RECEIVED FROM ROD LAU FOR CONTINUATION OF CARE.
[2020-03-07] MEDS: ENOXAPARIN 80 MG/0.8 ML SYR SUBQ SCH (23:31)
[2020-03-07] MEDS: DOCUSATE 100 MG/10 ML UDC PO SCH (23:34)
[2020-03-07] MEDS: LANSOPRAZOLE 30 MG CAPDR GT SCH (23:39)
[2020-03-07] MEDS: VIMPAT 10MG/ML ORAL SOLUTION PO SCH (23:40)
[2020-03-08] MEDS: NACL 0.9% 1,000 ML IV SCH ×2 (01:41→17:59)
--- NOTE | 2020-03-08 03:59 | NUR ---
Loose stool bowel movement noted at this time.
--- NOTE | 2020-03-08 04:00 | NUR ---
Perineal care provided to pt . Skin is intact. Pt tolerated procedure well.
--- NOTE | 2020-03-08 04:15 | NUR ---
Pt 24 g IV in Rt big toe pulled out during repositioning. IV removed, catheter intact and site benign. Applied folded 4x4 gauze and tape to stop bleeding.
--- NOTE | 2020-03-08 06:19 | NUR ---
Pt sitting up in bed, locked and in lowest position, HOB elevated , VSS. No acute distress noted.
--- NOTE | 2020-03-08 07:25 | NUR ---
Report provided to ROD Alcantara for transfer of care.
--- NOTE | 2020-03-08 08:56 | NUR ---
Patient will be admitted to care of [facility]. Admited to [facility]. Will go to room 109. Belongings list completed. Report to PADMINI VELASCO.
[2020-03-08 09:06] LABS: T4 (THYROXINE) 6.5 ug/dL (4.5-12.0)
[2020-03-08 10:43] LABS: BASOPHILS % (AUTO) 1.3 % (0.0-2.0); EOSINOPHILS # (AUTO) 0.2 K/uL (0-0.4); HEMATOCRIT 35.8 % (36-52); LYMPHOCYTES # (AUTO) 1.3 K/uL (2.0-11.5); LYMPHOCYTES % (AUTO) 34.3 % (20.5-51.1); MEAN CORPUSCULAR HEMOGLOBIN 33 pg (27-31); MEAN CORPUSCULAR HGB CONC 33 g/dL (33-37); MEAN CORPUSCULAR VOLUME 97.3 fL (80-94); MONOCYTES # (AUTO) 0.3 K/uL (0.8-1.0); MONOCYTES % (AUTO) 9.3 % (1.7-9.3); NEUTROPHILS # (AUTO) 1.8 K/uL (1.8-7.7); NEUTROPHILS % (AUTO) 50.1 % (42.2-75.2); PLATELET COUNT (AUTO) 275 K/uL (140-450); RED BLOOD CELL COUNT(AUTO) 3.68 MIL/uL (4.20-6.10); RED CELL DISTRIBUTION WIDTH 15.6 % (11.6-13.7); WHITE BLOOD COUNT (AUTO) 3.7 K/uL (4.8-10.8)
[2020-03-08 11:13] LABS: ANION GAP 11.1 (8-16); CARBON DIOXIDE 27.7 mmol/L (21-32); CREATININE 0.5 mg/dL (0.6-1.3); POTASSIUM 3.8 mmol/L (3.5-5.1)
[2020-03-08] MEDS: DEXTROSE 5% 1,000 ML IV SCH (11:30)
[2020-03-08] MEDS: DOCUSATE 100 MG/10 ML UDC PO SCH (11:40)
[2020-03-08] MEDS: levETIRAcetam 100 MG/ML ORASYR GT SCH ×2 (11:41→21:09)
[2020-03-08] MEDS: CHOLECALCIFEROL 1,000 IU TAB PO SCH (11:43)
[2020-03-08] MEDS: LACTULOSE 20 GM/30 ML UDC GT SCH ×2 (11:43→21:09)
[2020-03-08] MEDS: ASCORBIC ACID 500 MG TAB GT SCH ×2 (11:43→21:09)
[2020-03-08] MEDS: CALCIUM CARBONATE 500 MG TAB GT SCH (11:43)
[2020-03-08] MEDS: LANSOPRAZOLE 30 MG CAPDR GT SCH (11:44)
[2020-03-08] MEDS: ONDANSETRON 4 MG TAB GT SCH ×3 (11:44→17:59)
--- NOTE | 2020-03-08 11:45 | NUR ---
MORNING MEDICATIONS GIVEN VIA G TUBE. NO RESIDUAL NOTED. HOB ELEVATED, FLUSH PROTOCOL FOLLOWED. SAFETY MEASURES IN PLACE, WILL CONTINUE TO MONITOR.
[2020-03-08] MEDS: ENOXAPARIN 80 MG/0.8 ML SYR SUBQ SCH ×2 (11:46→21:10)
[2020-03-08] MEDS: risperiDONE 1 MG TAB GT SCH ×2 (11:47→21:09)
[2020-03-08] MEDS: VIMPAT 10MG/ML ORAL SOLUTION PO SCH ×2 (11:57→21:07)
[2020-03-08 12:03] LABS: PHOSPHORUS 2.9 mg/dL (2.5-4.9)
--- NOTE | 2020-03-08 12:08 | NUR ---
REACHED FNS TO REQUEST G TUBE FEEDING SUGGESTION. DIETITIAN LEFT ALREADY. GOT VACUUM DRUM DRIER OPERATOR EXTENSION [id number]. NO ONE ANSWERS. WILL TRY TO CALL AGAIN.
[2020-03-08] MEDS ORDERED: LANSOPRAZOLE 30 MG CAPDR GT SCH (12:45)
[2020-03-08 16:00] VITALS: BP 114/61
--- NOTE | 2020-03-08 16:40 | NUR ---
REACHED [facility] [phone], SPOKE WITH NILSA/GALLITO. GOT THE PREVIOUS FEEDING. PER NILSA: PATIENT GOT JEVITY 1.2 DAVID, 3 CANS AR 6PM, THEN AT BEDTIME 30ML/HR BY FEEDING PUMP. WATER FLUSH 150ML WITH PROTEIN AT 10PM, 2AM 150ML WATER FLUSH ONLY. 11AM 300ML WATER WITH PROTEIN BOLUS BY GRAVITY, ADD PRUNE JUICE. WILL CONSULT DIETITIAN AND INFORM .
--- NOTE | 2020-03-08 19:10 | NUR ---
RECEIVED BEDSIDE REPORT FROM DAY SHIFT NURSE FOR CONTINUITY OF CARE. PT IS NOT ALERT. LAYING IN SEMI FOWLERS POSITION. ON RA WITH BREATHING UNLABORED. G TUBE IN PLACE WITH G TUBE FEEDING NOT STARTED. WILL START FEEDING SHORTLY. SKIN IS WARM AND DRY. LAST BM WAS TODAY. IV IS IN THE RIGHT FOOT ON THE TOE WITH NS AT 75 ML PER HOUR. PT DOES NOT RESPOND. PLAN OF CARE DISCUSSED. DROPLET PRECAUTIONS IN PLACE FOR PENDING PCR. PT IS STABLE.
[2020-03-08 20:00] VITALS: BP 114/76
--- NOTE | 2020-03-08 21:05 | NUR ---
NGOC VELASCO VERFIED WITH ME THE LOCK BOX NARCOTICS TO GET THE VIMPAT UNCONTROLLED SUBSTANCE FROM LOCK BOX.
--- NOTE | 2020-03-08 21:30 | NUR ---
PT WAS REPOSITIONED. G TUBE FEEDING WAS SET UP AND INFUSING. MINIMAL RESIDUAL IN G TUBE, LESS THAN 5 ML. IV FLUIDS ARE INFUSING. PT APPEARS TO BE CALM, EXCEPT FOR EYE MOVEMENT RAPID BACK AND FORTH.
--- NOTE | 2020-03-08 23:30 | NUR ---
PT HAD A BOWEL MOVEMENT. PT WAS CHANGED AND LINENS WERE CHANGED. G TUBE RESIDUAL WAS CHECKED AND IT IS 5 ML. G TUBE FEEDING WAS INCREASED TO 40 ML PER HOUR. PT IS TOLERATING IT WELL. PILLOWS WERE USED TO OFFSET PRESSURE TO BACK AND HEELS.
--- NOTE | 2020-03-09 01:30 | NUR ---
ROUNDED ON PT. HE IS RESTING COMFORTABLY WITH EYES CLOSED. BREATHING IS UNLABORED ON RA. IV FLUIDS ARE INFUSING. G TUBE FEEDING IS INFUSING. PT IS STABLE.
--- NOTE | 2020-03-09 03:30 | NUR ---
G TUBE RESIDUAL IS LESS THAN 10 ML. G TUBE FEEDING WAS ADVANCED TO 50 ML PER HOUR PER ORDER. WILL CONTINUE TO MONITOR. PT IS LAYING COMFORTABLY. NO DISTRESS NOTED.
[2020-03-09 04:00] VITALS: BP 124/59
--- NOTE | 2020-03-09 05:30 | NUR ---
PT IS AWAKE AND EYES ARE MOVING RAPIDLY. BREATHING IS UNLABORED. NO SIGNS OF PAIN, FLACC 0. PT HAD ANOTHER BM AND WAS CHANGED. REPOSITIONED WITH PILLOWS.
--- NOTE | 2020-03-09 07:10 | NUR ---
FNS CONSULT FOR LINCOLN SCORE <=12 RECEIVED ON 03/09/20. PATIENT IS RESCREENED BY RD AND NOW CATEGORIZED HIGH NUTRITIONAL RISK. PATIENT WILL BE SEEN TODAY 03/09/[address] INITIAL ASSESSMENT/TUBE FEEDING RECOMMENDATIONS WILL BE CHARTED. SHIN CYR MBA, RD
--- NOTE | 2020-03-09 07:10 | NUR ---
ENDORSED PT TO DAY SHIFT NURSE FOR CONTINUITY OF CARE. PT IS STABLE AT THIS TIME. PLAN OF CARE DISCUSSED.
--- NOTE | 2020-03-09 07:15 | NUR ---
RECEIVED REPORT FROM NIGHTSHIFT NURSE. PT RESTING IN BED. FLACC 0. RESPIRATIONS EVEN AND UNLABORED WITH NO SOB OR RESPIRATORY DISTRESS. SKIN WARM AND DRY TO TOUCH. IV IN R FOOT IS CLEAN, DRY, AND INTACT. SAFETY MEASURES IN PLACE. WILL CONTINUE TO MONITOR
[2020-03-09 08:00] VITALS: BP 133/70
[2020-03-09] MEDS: ENOXAPARIN 80 MG/0.8 ML SYR SUBQ SCH (08:33)
[2020-03-09] MEDS: LACTULOSE 20 GM/30 ML UDC GT SCH ×2 (08:34→12:15)
[2020-03-09] MEDS: VIMPAT 10MG/ML ORAL SOLUTION PO SCH ×3 (08:35→21:51)
[2020-03-09] MEDS: CHOLECALCIFEROL 1,000 IU TAB PO SCH (08:37)
[2020-03-09] MEDS: risperiDONE 1 MG TAB GT SCH ×2 (08:37→21:50)
[2020-03-09] MEDS: CALCIUM CARBONATE 500 MG TAB GT SCH (08:38)
[2020-03-09] MEDS: levETIRAcetam 100 MG/ML ORASYR GT SCH ×2 (08:39→21:50)
[2020-03-09] MEDS: ASCORBIC ACID 500 MG TAB GT SCH ×2 (08:39→21:50)
[2020-03-09] MEDS: LANSOPRAZOLE 30 MG CAPDR GT SCH (08:39)
[2020-03-09] MEDS: ONDANSETRON 4 MG TAB GT SCH ×3 (08:40→17:04)
--- NOTE | 2020-03-09 08:56 | NUR ---
ADMINISTERED SCHED MED PRESCRIBED PER MD ORDER. PT TOLERATED. WELL. PT APHASIC AND UNABLE TO VERBALIZE UNDERSTANDING. SAFETY MEASURES IN PLACE. WILL CONTINUE TO MONITOR
--- NOTE | 2020-03-09 09:49 | NUR ---
03/09/20 RD INITIAL ASSESSMENT COMPLETED PLEASE REFER TO NUTRITION ASSESSMENT UNDER CARE ACTIVITY FOR ESTIMATED NUTRITIONAL NEEDS. RD RECOMMENDATIONS: 1. RECOMMEND CONTINUE TF JEVITY 1.2@50MLS/HR; TF PROVIDES 1440KCALS, 67GM PROTEIN; SUFFICIENT TO MEET PT ESYIMATED NEEDS. 2. CONTINUE WATER FLUSH 150MLS Q6HRS. 3. F/U 2-3 DAYS; HIGH RISK SHIN CYR MBA, RD
[2020-03-09 10:02] LABS: ANION GAP 7.8 (8-16); CARBON DIOXIDE 31.2 mmol/L (21-32); CREATININE 0.3 mg/dL (0.6-1.3)
[2020-03-09 10:04] LABS: PHOSPHORUS 3.1 mg/dL (2.5-4.9)
[2020-03-09 10:10] LABS: BASOPHILS % (AUTO) 0.8 % (0.0-2.0); EOSINOPHILS # (AUTO) 0.2 K/uL (0-0.4); EOSINOPHILS % (AUTO) 3.3 % (0.0-4.0); HEMATOCRIT 34.2 % (36-52); HEMOGLOBIN 11.7 g/dL (12.0-18.0); LYMPHOCYTES # (AUTO) 1.1 K/uL (2.0-11.5); LYMPHOCYTES % (AUTO) 23.7 % (20.5-51.1); MAGNESIUM 4.2 mg/dL (1.8-2.4); MEAN CORPUSCULAR HEMOGLOBIN 33 pg (27-31); MEAN CORPUSCULAR HGB CONC 34 g/dL (33-37); MEAN CORPUSCULAR VOLUME 95.5 fL (80-94); MONOCYTES # (AUTO) 0.4 K/uL (0.8-1.0); MONOCYTES % (AUTO) 8.3 % (1.7-9.3); NEUTROPHILS # (AUTO) 3.1 K/uL (1.8-7.7); NEUTROPHILS % (AUTO) 63.9 % (42.2-75.2); PLATELET COUNT (AUTO) 250 K/uL (140-450); RED BLOOD CELL COUNT(AUTO) 3.58 MIL/uL (4.20-6.10); RED CELL DISTRIBUTION WIDTH 15.5 % (11.6-13.7); WHITE BLOOD COUNT (AUTO) 4.8 K/uL (4.8-10.8)
--- NOTE | 2020-03-09 10:15 | NUR ---
PT HAD LARGE EPISODE OF BROWN COLORED VOMIT. NO RESIDUAL IN G-TUBE. PT OKAY. NO SIGNS OF DISTRESS. NOTED. SAFETY MEASURES IN PLACE. WILL CONTINUE TO MONITOR
[2020-03-09] MEDS: NACL 0.9% 1,000 ML IV SCH (10:26)
[2020-03-09] MEDS ORDERED: POTASSIUM CHLORIDE 20% 40 MEQ/15 ML UDC GT ONE (12:15)
[2020-03-09] MEDS ORDERED: POTASSIUM CHLORIDE 20% 40 MEQ/15 ML UDC GT SCH (12:30)
--- NOTE | 2020-03-09 12:30 | NUR ---
PT RESTING IN BED. FLACC 0. RESPIRATIONS EVEN AND UNLABORED WITH NO SOB OR RESPIRATORY DISTRESS. SKIN WARM AND DRY TO TOUCH. SAFETY MEASURES IN PLACE. WILL CONTINUE TO MONITOR
--- NOTE | 2020-03-09 13:24 | NUR ---
ADMINISTERED SCHED MED PRESCRIBED PER MD ORDER. PT TOLERATED. WELL. PT APHASIC AND UNABLE TO VERBALIZE UNDERSTANDING. SAFETY MEASURES IN PLACE. WILL CONTINUE TO MONITOR
[2020-03-09 14:50] LABS: ALBUMIN 3.3 g/dL (3.4-5.0); TOTAL BILIRUBIN 0.2 mg/dL (0.0-1.0)
[2020-03-09 16:00] VITALS: BP 112/63
--- NOTE | 2020-03-09 16:11 | NUR ---
DC PLANN[age] YRS OLD MALE PATIENT WAS ADMITTED FROM [facility] WITH A DX OF POSSIBLE HEPATIC ENCEPHALOPATHY. PT HAS A HX OF MENTALLY CHALLENGE ,SHAKEN BABY SYNDROME, G-TUBE. COVID TEST NEGATIVE. PT IS WITH [facility] CLIENT SERVICE AND CONSULTING MANAGER NILSA. NOTIFIED NILSA PT'S ADMISSION TO THE HOSPITAL. AMMONIA LEVEL 56 ON ADMISSION , TODAY'S AMMONIA LEVEL [address] DR RIZO SEEN PATIENT ORDERED AVOID POLYPHARMACY , BEGIN G-TUBE FEEDING AND ADVANCE TOLERATED. DC TO [facility] WHEN STABLE
--- NOTE | 2020-03-09 17:12 | NUR ---
ADMINISTERED SCHED MED PRESCRIBED PER MD ORDER. PT TOLERATED. WELL. PT APHASIC AND UNABLE TO VERBALIZE UNDERSTANDING. SAFETY MEASURES IN PLACE. WILL CONTINUE TO MONITOR
--- NOTE | 2020-03-09 19:05 | NUR ---
RECEIVED BEDSIDE REPORT FROM DAY SHIFT NURSE FOR CONTINUITY OF CARE. PT IS AWAKE, LAYING IN BED. EYE MOVEMENT IS RAPID, BACK AND FORTH. PT IS NONVERBAL. ON RA WITH BREATHING UNLABORED. G TUBE IN PLACE. PT IS INCONTINENT WITH DRY DIAPER IN PLACE. SKIN IS WARM, DRY AND INTACT. IV IS IN THE RIGHT FOOT AND PATENT. FLUIDS ARE INFUSING. BED IS IN THE LOWEST POSITION. PLAN OF CARE DISCUSSED.
--- NOTE | 2020-03-09 19:05 | NUR ---
ENDORSED TO NIGHTSHIFT FOR CONTINUITY OF CARE. PT IS STABLE
[2020-03-09 20:00] VITALS: BP 127/77
--- NOTE | 2020-03-09 21:30 | NUR ---
G TUBE WAS RESUMED AFTER SOME TIME BEING PAUSED FROM DAY SHIFT NURSE. G TUBE RESIDUAL WAS LESS THAN 5 ML. PT WAS CHANGED AND REPOSITIONED. SKIN IS INTACT. PT IS STABLE. WILL MONITOR FOR EMESIS.
--- NOTE | 2020-03-09 23:30 | NUR ---
PT WAS REPOSITIONED. IV FLUIDS ARE INFUSING. HOB IS AT A 45 DEGREE ANGLE TO PREVENT ASPIRATION. NO EPISODES OF EMESIS. G TUBE RESIDUAL IS LESS THAN 5 ML. G TUBE FEEDING IS INFUSING. PT IS STABLE.
--- NOTE | 2020-03-10 01:30 | NUR ---
PT IS ASLEEP. CHEST RISE AND FALL IS SYMMETRICAL. NO RESPIRATORY DISTRESS NOTED. NO PAIN NOTED, FLACC 0. WILL CONTINUE TO MONITOR.
--- NOTE | 2020-03-10 03:30 | NUR ---
PT IS ASLEEP. G TUBE FEEDING IS 5ML. BREATHING IS UNLABORED. NO SIGNS OF PAIN OR DISTRESS. PT IS STABLE.
[2020-03-10 04:00] VITALS: BP 106/77
--- NOTE | 2020-03-10 05:08 | NUR ---
PT HAD AN EPISODE OF EMESIS. DARK BROWN IN COLOR. NO RESIDUAL IN G TUBE. STOMACH IS NOW DISTENDED AND FIRM. PT WAS CHANGED AND GIVEN BED BATH WITH DISPOSABLE WIPES. WILL NOTIFY DOCTOR ABOUT EMESIS.
--- NOTE | 2020-03-10 06:20 | NUR ---
INFORMED DR. HOYT ABOUT THE EPISODE OF COFFEE GROUND EMESIS. ALSO INFORMED HER THAT THE ABDOMEN HAS BECOME DISTENDED AND THERE IS NO RESIDUAL IN THE G TUBE. DR. HOYT ORDERED A KUB STAT. WILL FOLLOW UP WITH XRAY.
--- NOTE | 2020-03-10 07:05 | NUR ---
RECEIVED REPORT FROM NIGHTSHIFT NURSE. PT RESTING IN BED. FLACC 0. RESPIRATIONS EVEN AND UNLABORED WITH NO SOB OR RESPIRATORY DISTRESS. SKIN WARM AND DRY TO TOUCH. IV SITE IN R TOE 24G IS CLEAN, DRY, AND INTACT. SAFETY MEASURES IN PLACE. WILL CONTINUE TO MONITOR
--- NOTE | 2020-03-10 07:20 | NUR ---
ENDORSED PT TO DAY SHIFT NURSE FOR CONTINUITY OF CARE. PT IS STABLE AT THIS TIME. PLAN OF CARE DISCUSSED.
[2020-03-10 08:00] VITALS: BP 124/70
[2020-03-10] MEDS: VIMPAT 10MG/ML ORAL SOLUTION PO SCH ×2 (09:00→22:02)
--- NOTE | 2020-03-10 10:30 | NUR ---
PT. ADMITTED WITH LOW LINCOLN SCALE AT RISK, IAD TO SACRAL AND BUTTOCKS, SKIN RED,MOIST AND INTACT CONTINUE TO FOLLOW PRESSURE INJURY PREVENTION INTERVENTIONS. -APPLY HYDRAGUARD TO SACRAL AND BUTTOCKS BID AND PRN IF SOILING -TURN AND REPOSITION PATIENT Q 2H -ASSESS AND MONITOR SKIN CONDITION DURING POSITION CHANGE -OFFLOAD BILATERAL HEELS BY PLACING PILLOWS UNDER CALVES AT ALL TIMES, UNLESS OTHERWISE CONTRAINDICATED -PRESSURE REDISTRIBUTION BY PLACING PILLOWS AND OFFLOADING SACRALCOCCYX -KEEP SKIN CLEAN AND DRY AT ALL TIMES.
[2020-03-10] MEDS: levETIRAcetam 100 MG/ML ORASYR GT SCH ×2 (10:37→22:01)
[2020-03-10] MEDS: LACTULOSE 20 GM/30 ML UDC GT SCH (10:40)
[2020-03-10] MEDS: CHOLECALCIFEROL 1,000 IU TAB PO SCH (10:40)
[2020-03-10] MEDS: LANSOPRAZOLE 30 MG CAPDR GT SCH (10:41)
[2020-03-10] MEDS: POTASSIUM CHLORIDE 20% 40 MEQ/15 ML UDC GT SCH (10:41)
[2020-03-10] MEDS: ASCORBIC ACID 500 MG TAB GT SCH ×2 (10:41→22:00)
[2020-03-10] MEDS: risperiDONE 1 MG TAB GT SCH ×2 (10:42→22:00)
[2020-03-10] MEDS: ONDANSETRON 4 MG TAB GT SCH ×3 (10:42→17:07)
--- NOTE | 2020-03-10 10:45 | NUR ---
PT HAD RESIDUAL OF 200 BLACK GASTRIC CONTENT. ADMINISTERED SCHED MED PRESCRIBED PER MD ORDER. PT TOLERATED WELL. MEDICATION EDUCATION PERFORMED. PT APHASIC AND UNABLE VERBALIZE UNDERSTANDING. SAFETY MEASURES IN PLACE. WILL CONTINUE TO MONITOR
[2020-03-10] MEDS: CALCIUM CARBONATE 500 MG TAB GT SCH (10:57)
[2020-03-10 11:04] LABS: BASOPHILS % (AUTO) 0.5 % (0.0-2.0); EOSINOPHILS # (AUTO) 0.1 K/uL (0-0.4); EOSINOPHILS % (AUTO) 1.5 % (0.0-4.0); HEMOGLOBIN 13.3 g/dL (12.0-18.0); LYMPHOCYTES # (AUTO) 1.1 K/uL (2.0-11.5); LYMPHOCYTES % (AUTO) 11.1 % (20.5-51.1); MEAN CORPUSCULAR HEMOGLOBIN 32 pg (27-31); MEAN CORPUSCULAR HGB CONC 33 g/dL (33-37); MEAN CORPUSCULAR VOLUME 97.1 fL (80-94); MONOCYTES # (AUTO) 0.7 K/uL (0.8-1.0); MONOCYTES % (AUTO) 7.4 % (1.7-9.3); NEUTROPHILS # (AUTO) 7.6 K/uL (1.8-7.7); NEUTROPHILS % (AUTO) 79.5 % (42.2-75.2); PLATELET COUNT (AUTO) 300 K/uL (140-450); RED BLOOD CELL COUNT(AUTO) 4.11 MIL/uL (4.20-6.10); RED CELL DISTRIBUTION WIDTH 15.7 % (11.6-13.7); WHITE BLOOD COUNT (AUTO) 9.6 K/uL (4.8-10.8)
--- NOTE | 2020-03-10 12:15 | NUR ---
PT RESTING IN BED. ABLE TO MAKE NEEDS KNOWN. RESPIRATIONS EVEN AND UNLABORED WITH NO SOB OR RESPIRATORY DISTRESS. SKIN WARM AND DRY TO TOUCH. SAFETY MEASURES IN PLACE. WILL CONTINUE TO MONITOR
[2020-03-10 13:01] LABS: MAGNESIUM 2.3 mg/dL (1.8-2.4)
[2020-03-10] MEDS: HYDRAGUARD CREAM TP SCH (13:14)
[2020-03-10 15:17] LABS: ANION GAP 11.1 (8-16); CARBON DIOXIDE 29.7 mmol/L (21-32); CREATININE 0.5 mg/dL (0.6-1.3); POTASSIUM 3.8 mmol/L (3.5-5.1)
[2020-03-10 16:00] VITALS: BP 110/54
[2020-03-10] MEDS ORDERED: bisacodyL 10 MG SUPP RC SCH (16:15)
--- NOTE | 2020-03-10 17:26 | NUR ---
ADMINISTERED SCHED MED PRESCRIBED PER MD ORDER. PT TOLERATED WELL. MEDICATION EDUCATION PERFORMED. PT APHASIC AND UNABLE VERBALIZE UNDERSTANDING. SAFETY MEASURES IN PLACE. WILL CONTINUE TO MONITOR
--- NOTE | 2020-03-10 19:05 | NUR ---
ENDORSED TO NIGHTSHIFT NURSE FOR CONTINUITY OF CARE. PT IS STABLE
[2020-03-10 20:00] VITALS: BP 148/58
[2020-03-11] MEDS: HYDRAGUARD CREAM TP SCH ×2 (01:26→13:13)
[2020-03-11 04:00] VITALS: BP 117/69
[2020-03-11] MEDS: levETIRAcetam 100 MG/ML ORASYR GT SCH ×2 (09:45→21:00)
[2020-03-11] MEDS: POTASSIUM CHLORIDE 20% 40 MEQ/15 ML UDC GT SCH (09:45)
[2020-03-11] MEDS: LACTULOSE 20 GM/30 ML UDC GT SCH (09:49)
[2020-03-11] MEDS: LANSOPRAZOLE 30 MG CAPDR GT SCH (09:50)
[2020-03-11] MEDS: CHOLECALCIFEROL 1,000 IU TAB PO SCH (09:50)
[2020-03-11] MEDS: ONDANSETRON 4 MG TAB GT SCH ×3 (09:50→17:08)
[2020-03-11] MEDS: ASCORBIC ACID 500 MG TAB GT SCH ×2 (09:50→21:00)
[2020-03-11] MEDS: CALCIUM CARBONATE 500 MG TAB GT SCH (09:50)
[2020-03-11] MEDS: risperiDONE 1 MG TAB GT SCH ×2 (09:51→21:00)
[2020-03-11 09:53] LABS: BASOPHILS % (AUTO) 0.4 % (0.0-2.0); EOSINOPHILS # (AUTO) 0.1 K/uL (0-0.4); EOSINOPHILS % (AUTO) 0.8 % (0.0-4.0); HEMOGLOBIN 12.5 g/dL (12.0-18.0); LYMPHOCYTES # (AUTO) 1.3 K/uL (2.0-11.5); LYMPHOCYTES % (AUTO) 10.3 % (20.5-51.1); MEAN CORPUSCULAR HEMOGLOBIN 32 pg (27-31); MEAN CORPUSCULAR HGB CONC 33 g/dL (33-37); MEAN CORPUSCULAR VOLUME 96.9 fL (80-94); MONOCYTES # (AUTO) 1.1 K/uL (0.8-1.0); MONOCYTES % (AUTO) 8.8 % (1.7-9.3); NEUTROPHILS % (AUTO) 79.7 % (42.2-75.2); PLATELET COUNT (AUTO) 286 K/uL (140-450); RED BLOOD CELL COUNT(AUTO) 3.92 MIL/uL (4.20-6.10); RED CELL DISTRIBUTION WIDTH 15.7 % (11.6-13.7); WHITE BLOOD COUNT (AUTO) 12.6 K/uL (4.8-10.8)
[2020-03-11] MEDS: VIMPAT 10MG/ML ORAL SOLUTION PO SCH ×2 (10:00→21:00)
[2020-03-11 10:23] LABS: ANION GAP 13.5 (8-16); CARBON DIOXIDE 32.1 mmol/L (21-32); CREATININE 0.6 mg/dL (0.6-1.3); POTASSIUM 3.6 mmol/L (3.5-5.1)
[2020-03-11 10:35] LABS: MAGNESIUM 2.5 mg/dL (1.8-2.4); PHOSPHORUS 4.9 mg/dL (2.5-4.9)
[2020-03-11 10:54] LABS: ALBUMIN 3.5 g/dL (3.4-5.0); BILIRUBIN,DIRECT 0.1 mg/dL (0.0-0.3); TOTAL BILIRUBIN 0.2 mg/dL (0.0-1.0)
[2020-03-11 16:00] VITALS: BP 124/71
[2020-03-11] MEDS: NACL 0.45% 1,000 ML IV SCH (17:36)
--- NOTE | 2020-03-11 19:30 | NUR ---
REPORT GIVEN TO RESEARCH METHODS INSTRUCTOR RN.
[2020-03-11 20:00] VITALS: BP 124/72
--- NOTE | 2020-03-11 20:00 | NUR ---
RECEIVED REPORT FROM CRISTY/RN, PT IS MENTALLY INCAPACITY, AWAKE, NO SOB/ DISTRESS, NO S/SX OF PAIN, GT INTACT. INCONTINENT.
[2020-03-12] MEDS: HYDRAGUARD CREAM TP SCH ×2 (00:34→13:00)
--- NOTE | 2020-03-12 06:36 | NUR ---
PT AWAKE ON BED, COGNITIVE IMPAIRED, NON-VERBAL, NO S/SX OF SOB/ DISTRESS, NO S/SX OF PAIN/ DISCOMFORT, G-TUBE INTACT DRAINING WELL. VSS.
--- NOTE | 2020-03-12 07:20 | NUR ---
REPORT GIVEN TO CRISTY/RN
--- NOTE | 2020-03-12 07:21 | NUR ---
RECEIVED REPORT FROM NIGHTSHIFT NURSE. PT RESTING IN BED. FLACC 0. RESPIRATIONS EVEN AND UNLABORED WITH NO SOB OR RESPIRATORY DISTRESS ON RA. SKIN WARM AND DRY TO TOUCH. IV SITE IN R TOE 24G IS CLEAN, DRY, AND INTACT INFUSING WELL. BED IN LOWEST POSITION WITH BRAKES ON. SAFETY MEASURES IN PLACE. WILL CONTINUE TO MONITOR
[2020-03-12 08:00] VITALS: BP 116/67
[2020-03-12 08:58] LABS: ANION GAP 11.3 (8-16); CARBON DIOXIDE 30.1 mmol/L (21-32); CREATININE 0.5 mg/dL (0.6-1.3); POTASSIUM 3.4 mmol/L (3.5-5.1)
[2020-03-12 09:02] LABS: BASOPHILS % (AUTO) 0.5 % (0.0-2.0); EOSINOPHILS # (AUTO) 0.2 K/uL (0-0.4); EOSINOPHILS % (AUTO) 2.7 % (0.0-4.0); HEMATOCRIT 33.7 % (36-52); HEMOGLOBIN 11.2 g/dL (12.0-18.0); LYMPHOCYTES # (AUTO) 1.4 K/uL (2.0-11.5); LYMPHOCYTES % (AUTO) 15.7 % (20.5-51.1); MEAN CORPUSCULAR HEMOGLOBIN 32 pg (27-31); MEAN CORPUSCULAR HGB CONC 33 g/dL (33-37); MEAN CORPUSCULAR VOLUME 96.5 fL (80-94); MONOCYTES # (AUTO) 0.8 K/uL (0.8-1.0); MONOCYTES % (AUTO) 9.5 % (1.7-9.3); NEUTROPHILS # (AUTO) 6.3 K/uL (1.8-7.7); NEUTROPHILS % (AUTO) 71.6 % (42.2-75.2); PLATELET COUNT (AUTO) 237 K/uL (140-450); RED BLOOD CELL COUNT(AUTO) 3.49 MIL/uL (4.20-6.10); RED CELL DISTRIBUTION WIDTH 15.2 % (11.6-13.7); WHITE BLOOD COUNT (AUTO) 8.8 K/uL (4.8-10.8)
[2020-03-12 09:12] LABS: PHOSPHORUS 5.3 mg/dL (2.5-4.9)
[2020-03-12] MEDS: risperiDONE 1 MG TAB GT SCH ×2 (09:59→21:19)
[2020-03-12] MEDS: CHOLECALCIFEROL 1,000 IU TAB PO SCH (09:59)
[2020-03-12] MEDS: CALCIUM CARBONATE 500 MG TAB GT SCH (09:59)
[2020-03-12] MEDS: levETIRAcetam 100 MG/ML ORASYR GT SCH ×2 (09:59→21:19)
[2020-03-12] MEDS: VIMPAT 10MG/ML ORAL SOLUTION PO SCH ×2 (09:59→21:19)
[2020-03-12] MEDS: ASCORBIC ACID 500 MG TAB GT SCH ×2 (09:59→21:19)
[2020-03-12] MEDS: ONDANSETRON 4 MG TAB GT SCH ×3 (09:59→17:34)
[2020-03-12] MEDS: POTASSIUM CHLORIDE 20% 40 MEQ/15 ML UDC GT SCH (09:59)
[2020-03-12] MEDS: LANSOPRAZOLE 30 MG CAPDR GT SCH (09:59)
[2020-03-12] MEDS: LACTULOSE 20 GM/30 ML UDC GT SCH (10:00)
--- NOTE | 2020-03-12 10:00 | NUR ---
0 ML OF RESIDUAL NOTED. GTUBE FLUSHED AND AUSCULTATED FOR PLACEMENT. MEDICATIONS GIVEN VIA GTUBE. ORAL CARE PERFORMED. PATIENT TOLERATED IT.
--- NOTE | 2020-03-12 11:00 | NUR ---
PATIENT VOIDED. CHANGED, CLEANED, AND REPOSITIONED FOR COMFORT AND TO OFFLOAD PRESSURED AREAS. HYDRAGUARD APPLIED TO SACRAL COCCYX, CARDIAC CATH TECH. NEW TF STARTED. PT HAS NO COMPLAINTS AT THIS TIME. FLACC-0. BED IN LOWEST POSITION WITH BRAKES ON. WILL CONTINUE TO MONITOR PATIENT.
[2020-03-12] MEDS: NACL 0.45% 1,000 ML IV SCH (13:00)
--- NOTE | 2020-03-12 13:24 | NUR ---
PT'S MOTHER ERLINDA ESTRADA CALLED. PATIENT CURRENTLY RESTING IN BED, FLACC-0. UPDATED HER ABOUT DISCHARGE ORDER. CURRENTLY NO DISCHARGE TIME YET. SHE VERBALIZED UNDERSTANDING.
[2020-03-12 16:00] VITALS: BP 107/68
--- NOTE | 2020-03-12 16:37 | NUR ---
CALLED INTERMEDIATE, [facility] AT [phone]. NO ANSWER. LEFT MESSAGE ABOUT PT'S DISCHARGE AND STATION'S PHONE #. WILL WAIT FOR HER TO CALL BACK.
--- NOTE | 2020-03-12 17:35 | NUR ---
CALLED NURSING HOME, [facility] AT [phone]. NO ANSWER. LEFT MESSAGE ABOUT PT'S DISCHARGE AND STATION'S PHONE #. WILL WAIT FOR HER TO CALL BACK. CALLED ERLINDA, PT'S MOTHER AT [phone], NOT IN SERVICE. WORK #[id number], NO ANSWER. WILL ATTEMPT AGAIN.
--- NOTE | 2020-03-12 19:24 | NUR ---
REPORT GIVEN TO SUPERVISOR WIRE ROPE FABRICATION RN AT BEDSIDE FOR CONTINUITY OF CARE. PATIENT IN STABLE CONDITION.
--- NOTE | 2020-03-12 19:30 | NUR ---
RECEIVED PATIENT FROM AM SHIFT NURSE FOR CONTINUITY OF CARE. PATIENT IS AWAKE, UNABLE TO MAKE NEEDS KNOWN. RESPIRATIONS EVEN, UNLABORED. NO S/S RESPIRATORY DISTRESS. SKIN WARM, DRY. IV SITE NOTED TO RIGHT BIG TOE PATENT/INTACT, INFUSING FLUIDS WELL. FLACC 0. NO S/S ACUTE DISTRESS. ABDOMEN SOFT, NONTENDER, NONDISTENDED. BOWEL SOUNDS ACTIVE X4 QUADRANTS. GT PATENT/INTACT. CONTINUES ON ENTERAL FEEDING, TOLERATING WELL. NO RESIDUAL NOTED. HOB UP 30 DEGREES. PATIENT IS INCONTINENT OF B/B. PLAN OF CARE DISCUSSED. SAFETY PRECAUTIONS IN PLACE.
[2020-03-12 20:00] VITALS: BP 107/62
--- NOTE | 2020-03-12 20:40 | NUR ---
CALLED PATIENT'S MOTHER ERLINDA OCONNELL PROVIDED PHONE NUMBER [phone], BUT PHONE WAS NOT IN SERVICE.
--- NOTE | 2020-03-12 21:40 | NUR ---
DUE MEDS GIVEN. PATIENT RESTING COMFORTABLY IN BED. FLACC 0. NO S/S ACUTE DISTRESS. CALL LIGHT WITHIN REACH. SAFETY PRECAUTIONS IN PLACE.
--- NOTE | 2020-03-12 23:30 | NUR ---
INCONTINENT CARE RENDERED WITH DETECTIVE CAPTAIN AT BEDSIDE. FLACC 0. NO S/S ACUTE DISTRESS. CALL LIGHT WITHIN REACH. SAFETY PRECAUTIONS IN PLACE.
--- NOTE | 2020-03-13 01:00 | NUR ---
MADE ROUNDS. PATIENT IS ASLEEP. FLACC 0. NO S/S ACUTE DISTRESS. CALL LIGHT WITHIN REACH. SAFETY PRECAUTIONS IN PLACE.
[2020-03-13] MEDS: HYDRAGUARD CREAM TP SCH ×2 (01:38→13:58)
--- NOTE | 2020-03-13 03:20 | NUR ---
PATIENT IS ASLEEP. FLACC 0. NO S/S ACUTE DISTRESS. CALL LIGHT WITHIN REACH. SAFETY PRECAUTIONS IN PLACE.
[2020-03-13 04:00] VITALS: BP 120/81
--- NOTE | 2020-03-13 05:20 | NUR ---
PATIENT TURNED AND REPOSITIONED. FLACC 0. NO S/S ACUTE DISTRESS. FREQUENT ROUNDS BY ALL STAFF. SAFETY PRECAUTIONS IN PLACE.
--- NOTE | 2020-03-13 07:33 | NUR ---
ENDORSED PATIENT TO AM SHIFT NURSE FOR CONTINUITY OF CARE.
--- NOTE | 2020-03-13 07:36 | NUR ---
RECEIVED PATIENT FROM PASSENGER CAR CONDUCTOR NURSE FOR CONTINUITY OF CARE. PATIENT IS AWAKE, UNABLE TO MAKE NEEDS KNOWN. RESPIRATIONS EVEN, UNLABORED. ON ROOM AIR. NO S/S RESPIRATORY DISTRESS. SKIN WARM, DRY. IV SITE NOTED TO RIGHT BIG TOE PATENT/INTACT. FLACC 0. NO S/S ACUTE DISTRESS. GT PATENT/INTACT. CONTINUES ON ENTERAL FEEDING. NO RESIDUAL NOTED. HOB UP 30 DEGREES. PLAN OF CARE DISCUSSED. SAFETY PRECAUTIONS IN PLACE. BED IN LOW POSITION AND CALL LIGHT WITHIN REACH. WILL CONTINUE TO MONITOR.
[2020-03-13 08:00] VITALS: BP 99/49
[2020-03-13] MEDS: VIMPAT 10MG/ML ORAL SOLUTION PO SCH (09:00)
--- NOTE | 2020-03-13 09:14 | NUR ---
RECEIVED A CALL FROM NURSE BOWEN. GAVE REPORT OVER THE PHONE. SAID THAT TRANSPORTATION IS BEING ARRANGED AND WILL BE HERE AROUND 1330
[2020-03-13] MEDS: NACL 0.45% 1,000 ML IV SCH (09:15)
[2020-03-13] MEDS: levETIRAcetam 100 MG/ML ORASYR GT SCH (11:25)
[2020-03-13] MEDS: POTASSIUM CHLORIDE 20% 40 MEQ/15 ML UDC GT SCH (11:25)
[2020-03-13] MEDS: LACTULOSE 20 GM/30 ML UDC GT SCH (11:26)
[2020-03-13] MEDS: CHOLECALCIFEROL 1,000 IU TAB PO SCH (11:30)
[2020-03-13] MEDS: LANSOPRAZOLE 30 MG CAPDR GT SCH (11:30)
--- NOTE | 2020-03-13 11:30 | NUR ---
ALL SCHEDULED MEDS GIVEN. PT IS STABLE. NO RESPIRATORY DISTRESS NOTED. WILL CONTINUE TO MONITOR.
[2020-03-13] MEDS: ONDANSETRON 4 MG TAB GT SCH ×2 (11:31→13:00)
[2020-03-13] MEDS: ASCORBIC ACID 500 MG TAB GT SCH (11:31)
[2020-03-13] MEDS: CALCIUM CARBONATE 500 MG TAB GT SCH (11:31)
[2020-03-13] MEDS: risperiDONE 1 MG TAB GT SCH (11:31)
--- NOTE | 2020-03-13 13:30 | NUR ---
TRANSPORTATION FROM [facility] ARRIVED. PICKED UP PATIENT FROM ROOM AND WHEEL TO A TRANSPORT VAN BACK TO [facility].
== END 2020-03-13 13:30 | DRG 279 ==
LOC: MED 19:16 → MTU 03-07 02:01
DX: K72.90 Hepatic failure, unspecified without coma (principal); G91.9 Hydrocephalus, unspecified; E83.41 Hypermagnesemia; Z93.1 Gastrostomy status; G80.9 Cerebral palsy, unspecified; Z20.822 Contact with and (suspected) exposure to COVID-19; E66.9 Obesity, unspecified; Z68.29 Body mass index [BMI] 29.0-29.9, adult; R74.01 Elevation of levels of liver transaminase levels; G40.909 Epilepsy, unspecified, not intractable, without status epilepticus; Z98.2 Presence of cerebrospinal fluid drainage device; E86.0 Dehydration; K59.09 Other constipation; G24.9 Dystonia, unspecified; F39 Unspecified mood [affective] disorder; K21.9 Gastro-esophageal reflux disease without esophagitis; E78.5 Hyperlipidemia, unspecified; F79 Unspecified intellectual disabilities; R94.5 Abnormal results of liver function studies; Z87.820 Personal history of traumatic brain injury; Z88.0 Allergy status to penicillin; Z88.2 Allergy status to sulfonamides; Z88.1 Allergy status to other antibiotic agents; Z88.8 Allergy status to other drugs, medicaments and biological substances; Z79.899 Other long term (current) drug therapy
CPT/HCPCS: 36415; 36556; 70450; 71045; 74018; 76705; 80048; 80053; 80076; 80184; 80305; 81003; 82140; 82150; 82550; 83036; 83690; 83735; 83880; 84100; 84134; 84436; 84443; 84484; 85025; 85610; 85730; 86704; 86706; 86708; 86709; 86803; 87040; 87081; 87086; 87340; 93005; 96372; 99285; G0480; G0482; J1650; J7030; J7060; Q0162; U0003

== ENCOUNTER 2022-08-15 14:02 | Emergency (ER) | payer MEDICAID ==
[~2022-08-15] VITALS: Ht 175.3 cm; Wt 90.7 kg
[~2022-08-15 14:02] MED LIST changes: -BENZ-203 GT; +BENZ-315 GT; +DOCU-464 GT; -DOCU100C16 GT; -IBUP-1842 GT; -levaquin IV
[2022-08-15 14:06] VITALS: BP 122/70
--- NOTE | 2022-08-15 14:47 | NUR ---
PT HAIM MEDINA RUN FROM [facility] C/O RIGHT KNEE PAIN SINCE THIS AM. PT NON VERBAL PER STAFF DENIES INJURY OR TRAUMA
[2022-08-15] MEDS ORDERED: IBUP-2213 GT (15:54)
--- NOTE | 2022-08-15 15:58 | NUR ---
Pt up for dc. BLS transport scheduled. Report given to RN at sending/receiving facility. Pt in stable condition.
--- NOTE | 2022-08-15 16:49 | NUR ---
knee immobilizer applied to r knee
--- NOTE | 2022-08-15 17:00 | NUR ---
SPOKE TO SENIOR WATER/WASTEWATER ENGINEER ARASELI TO MAKE GIVE REPORT FOR PT AND MAKE AWARE OF APS FILING
--- NOTE | 2022-08-15 17:15 | NUR ---
SPOKE TO BRAYAN CONNOLLY GUNNER'S MATE 2 AT [facility] TO FILE APS REPORT
--- NOTE | 2022-08-15 17:26 | NUR ---
Report given to transport EMT ABRAN with [place] transport. Pt in stable condition, vss, no ss of acute distress, breathing equal and unlabored, non verbal (baseline).
--- NOTE | 2022-08-15 17:28 | NUR ---
ARON AT [facility]
== END 2022-08-15 17:28 ==
LOC: MED 14:02
DX: S82.231A Displaced oblique fracture of shaft of right tibia, initial encounter for closed fracture (principal); S82.431A Displaced oblique fracture of shaft of right fibula, initial encounter for closed fracture; I10 Essential (primary) hypertension; Z86.69 Personal history of other diseases of the nervous system and sense organs; Z98.890 Other specified postprocedural states; Z79.899 Other long term (current) drug therapy; Z88.0 Allergy status to penicillin; Z88.1 Allergy status to other antibiotic agents; Z88.8 Allergy status to other drugs, medicaments and biological substances; Z88.2 Allergy status to sulfonamides; X58.XXXA Exposure to other specified factors, initial encounter; Y92.89 Other specified places as the place of occurrence of the external cause; Y93.89 Activity, other specified; Y99.8 Other external cause status
CPT/HCPCS: 29505; 73562; 99283